=== PATIENT | female | born 1955 | race African-American/Black ===

== ENCOUNTER 2019-07-05 10:15 | Inpatient (IN) | payer BC, SELFPAY ==
[2019-07-05] VITALS (14 sets, daily range): BP systolic 117–159; BP diastolic 77–106; PULSE 48–139; RESP 12–24; TEMP 36.2–37; O2SAT 91–100; BMI 23.1
--- NOTE | ~2019-07-05 | XR_ITS ---
EXAMINATION: XR chest 2V DATE: 07/05/2019 10:52 INDICATION: Chest pain and nausea TECHNIQUE: AP and lateral views of the chest are obtained. COMPARISON: 08/11/2017 FINDINGS: The lungs are free of acute opacities. There is no pleural effusion or pneumothorax. The ca rdiomediastinal silhouette is normal. The visualized bones and soft tissues are unremarkable. IMPRESSION: 1. No acute cardiopulmonary abnormality. Reviewed, dictated and finalized at location A. INSPECTION AND REPAIR MANAGER
--- NOTE | ~2019-07-05 | NM_ITS ---
EXAMINATION: NM lucy stress w perfusion DATE: 07/08/2019 11:30 INDICATION: Atrial fibrillation. Syncope. TECHNIQUE: Rest images were obtained following intravenous administration of 10.8 mCi Tc99m tetrofosm in (Myoview). The patient was infused intravenously with Lexiscan (regadenoson). Then, 31.77 mCi Tc99 m tetrofosmin (Myoview) was administered intravenously, and stress images were obtained. Data was rec onstructed into short axis and horizontal and vertical long axis SPECT images. Gated SPECT images wer e also obtained. COMPARISON: None. FINDINGS: There is no definite reversible or fixed perfusion abnormality to suggest ischemia or infar ction. There is no segmental wall motion abnormality. Left ventricular ejection fraction measures 6 9%. IMPRESSION: 1. No definite ischemia or infarct. 2. Normal left ventricular ejection fraction measuring 69%. Reviewed, dictated and finalized at location A. AL CONTROL OFFICER
--- NOTE | ~2019-07-05 | CT_ITS ---
EXAMINATION: CTA brain carotid EXAM DATE: 07/05/2019 21:39 INDICATION: Atrial fibrillation. Pulsatile tinnitus. Syncope. TECHNIQUE: Noncontrast head CT. Spiral CTA of the carotid arteries was performed with intravenous i njection 100 cc of Omnipaque 350. Axial, coronal, sagittal reformatted images reviewed. Additional r eformatted images created on dedicated 3-D workstation. NASCET comparable standard used to assess th e degree of arterial stenosis. Spiral CT angiogram cerebral arteries performed with the same intrave nous injection of contrast. Source images of the brain CTA transferred to dedicated workstation for 3 -D rotational image creation. Coronal, sagittal maximum intensity pixel images also reviewed. The d ose-length product (DLP) for this examination was 1578.31 mGy-cm. The exposure was tailored accordi ng to patient size, and iterative reconstruction (ASIR) was used as additional dose reduction techniq ue. There is no prior study for comparison. FINDINGS: Punctate right carotid bulb calcification and left carotid siphon calcification with 0% xander nosis bilaterally. The vertebral arteries are codominant. There is no carotid or vertebral basilar a rterial dissection or fibromuscular dysplasia. There are no cerebral artery aneurysms. There is symme tric cerebral artery arborization. The sagittal, transverse and sigmoid sinuses enhance normally, no venous sinus thrombosis. Internal cerebral veins also enhance normally. There is no acute intraparenchymal hemorrhage. No evidence of intraparenchymal brain mass lesion. N o evidence of acute infarction. There is mild periventricular and subcortical hypodensity, nonspecifi c but probably related to small vessel ischemic disease. There is mild prominence of the sulci and ventricles related to cerebral atrophy. There is intracranial carotid arteriosclerosis. There is no mass effect or midline shift. There is no obstructive hydrocephalus suspected. There are no extra -axial collections. There are no calvarial acute fractures. Moderate apical emphysema. Mild cervical spondylosis. IMPRESSION: 1. No cervical arterial dissection or cerebral artery aneurysm. 2. 0% carotid stenosis bilaterally. 3. Mild age-related intracranial findings. Reviewed, dictated and finalized at location A. ILL SUPERVISOR
--- NOTE | 2019-07-05 10:48 | ECG_ITS ---
Measurements Intervals [place] Rate: 135 P: [place]: 0 QRS: 62 QRSD: 89 T: 29 QT: 286 QTc: 430 Interpretive Statements ATRIAL FIBRILLATION WITH RAPID VENTRICULAR RESPONSE ST-T WAVE ABNORMALITY IN ANTEROLATERAL LEADS- CONSIDER ISCHEMIA ABNORMAL ECG Electronically Signed On 07-05-2019 11:08:42 BOILER CONTROL ROOM OPERATOR by Livan Jennings D.O.
[2019-07-05 10:51] LABS: Basophils Absolute Auto 0.1 K/mm3 (0.0-0.1); Basophils Percent Auto 0.6 % (0.2-1.2); Eosinophils Absolute Auto 0.2 K/mm3 (0-0.3); Eosinophils Percent Auto 2.5 % (0-4.4); Hematocrit 42.7 % (37.0-47.0); Hemoglobin 13.2 g/dL (12.0-15.0); Immature Granulocyte Absolute 0.05 K/mm3 (0.00-0.031); Immature Granulocyte Percent A 0.5 % (0-0.5); Lymphocytes Absolute Auto 2.95 K/mm3 (0.9-3.2); Lymphocytes Percent Auto 30.8 % (18.3-44.2); Mean Corpuscular HGB Conc 30.9 g/dl (32-36); Mean Corpuscular Hemoglobin 28.1 pg (26-34); Mean Corpuscular Volume 90.9 fl (80-100); Mean Platelet Volume 10.9 fl (7.4-10.4); Monocytes Absolute Auto 0.5 K/mm3 (0.1-0.6); Monocytes Percent Auto 5.4 % (2.6-8.5); Neutrophils Absolute Auto 5.8 K/mm3 (1.3-6.7); Neutrophils Percent Auto 60.2 % (45.5-73.1); Platelet Count Result 281 k/mm3 (150-375); Red Cell Distribution Width 13.6 % (11.5-14.5); White Blood Count 9.6 K/mm3 (4.5-10.0)
[2019-07-05 11:03] LABS: Alanine Aminotransferase 18 U/L (4-35); Albumin Level 4.6 g/dL (3.5-5.1); Alkaline Phosphatase 129 U/L (38-126); Aspartate Amino Transferase 25 U/L (14-36); Bilirubin,Total 0.3 mg/dL (0.2-1.3); Blood Urea Nitrogen 9 mg/dL (7-17); Calcium 9.4 mg/dL (8.4-10.2); Carbon Dioxide 23 mmol/L (22-30); Chloride 105 mmol/L (98-107); Estimated CRCL calculation 81 ml/min; Estimated Glomerular Filt Rate > 60; Glucose 144 mg/dL (65-105); Potassium 3.4 mmol/L (3.4-5.0); Prothrombin Time 12.6 Seconds (11.1-14.7); Sodium 139 mmol/L (137-145)
[2019-07-05 11:04] LABS: Partial Thromboplastin Time 28.8 SECONDS (22.3-36.8)
[2019-07-05 11:16] LABS: NT Pro B Type Natriuretic Pept 91 PG/ML (5-100); Troponin I < 0.012 ng/mL (0.000-0.034)
[2019-07-05 11:25] LABS: Lactic Acid Reflex 2.7 mmol/L (0.7-2.1)
--- NOTE | 2019-07-05 11:30 | ECG_ITS ---
Measurements Intervals [place] Rate: 137 P: [place]: 0 QRS: 1 QRSD: 97 T: 72 QT: 325 QTc: 492 Interpretive Statements ATRIAL FIBRILLATION WITH RAPID VENTRICULAR RESPONSE ST-T WAVE ABNORMALITY IN LATERAL LEADS- CONSIDER ISCHEMIA ABNORMAL ECG Electronically Signed On 07-05-2019 13:58:44 STOCK COUNTER by Livan Jennings D.O.
[2019-07-05] MEDS: FAMOTIDINE 20 MG/2 ML VIAL IV PUSH ×2 (11:43→21:06)
[2019-07-05] MEDS: LACTATED RINGERS 1,000 ML 999 ML IV CONT ×2 (11:43)
--- NOTE | 2019-07-05 12:43 | PC.NURSE ---
pt converted to nsr
--- NOTE | 2019-07-05 12:48 | ED.GENADULT ---
HPI - General Adult General Chief complaint: Dizziness Stated complaint: vomiting, diarrhea Time Seen by Provider: 07/05/19 10:50 Source: patient Mode of arrival: ambulatory Limitations: no limitations History of Present Illness HPI narrative: Patient is a 64-year-old female who presents to emergency department for evaluation of vomiting that occurred twice today also coupled with 2 loose stools noting to episodes of emesis after eating breakfast this morning had felt fine yesterday and this morning upon waking patient on arrival to emergency department is tachycardic but denying any pain does note some dizziness and nausea. Patient denies rectal bleeding or hematemesis. Patient denies sick contacts or similar occurrence. Patient notes she did vomit her medications up this morning Related Data Home Medications Medication Instructions Recorded Confirmed adalimumab 40 mg/0.8 mL 40 mg SUB-Q .every 2 weeks each 04/20/19 subcutaneous syringe kit amlodipine 10 mg tablet 10 mg PO DAILY 04/20/19 atenolol 25 mg tablet 25 mg PO DAILY 04/20/19 cholecalciferol (vitamin D3) 2,000 2,000 unit PO DAILY 04/20/19 unit tablet hydrochlorothiazide 12.5 mg capsule 12.5 mg PO DAILY 04/20/19 leflunomide 20 mg tablet 20 mg PO DAILY 04/20/19 vitamin B12 500 mcg-folic acid 400 1 tablet PO DAILY 04/20/19 mcg tablet Allergies Allergy/AdvReac Type Severity Reaction Status Date / Time No Known Allergies Allergy Unverified 09/21/15 08:15 Review of Systems Review of Systems: Narrative: CONSTITUTIONAL: Denies fever, chills, or sweats. Positive for for fatigue EYES: Denies redness, or discharge. ENT: Denies rhinorrhea, congestion, sore throat, or otalgia. CARDIOVASCULAR: Denies chest pain, palpitations, or edema. RESPIRATORY: Denies cough or dyspnea. GASTROINTESTINAL: Denies abdominal pain GENITOURINARY: Denies dysuria or hematuria. SKIN: Denies rash or itching. MUSCULOSKELETAL: Denies back pain, joint pain, or myalgia. NEUROLOGIC: Denies headache, numbness, or weakness. [facility] Past Medical History Medical History Hypertension Rheumatoid arthritis Family History Family History (Updated 03/30/16 @ 13:32 by DOCTOR UNKNOWN) Sibling Hypertension Patient's sister is in good health Patient's brother is in good health, Onset Age: 50 Father Family history of malignant neoplasm Patient's father is Social History Social History Smoking status: Former smoker Second hand tobacco smoke exposure: No Smoking end date: 06/12/16 Alcohol intake: never Gender identity (if verbalized by the patient): Female Exam Narrative: Exam Narrative: GENERAL: ill-appearing, well-nourished, and in no acute distress. HEAD: Normocephalic, atraumatic. EYES: PERRLA and EOMI. ENT: Nares clear, no rhinorrhea or epistaxis. Mucous membranes moist. Oropharynx without tonsillar hypertrophy exudate or other lesions. Bilateral TMs pearly perez nonbulging NECK: Supple. No adenopathy or masses. CHEST: Clear to auscultation. No respiratory distress. No wheezes rales or rhonchi HEART: Irregularly irregular rate and rhythm. No murmur heard. Normal peripheral pulses. ABDOMEN: Soft, nontender, nondistended EXTREMITIES: Normal range of motion. No edema. SKIN: Warm, dry, no rash. NEURO: No focal deficits. Alert and oriented x3. Cranial nerves II through XII grossly intact PSYCH: Normal mood and affect. Course Course Emergency Course: Patient in the room at this time in no distress feeling better with interventions afebrile nontoxic-appearing Consultations Consultation #1: Spoke with hospitalist who is agreed to accept the patient physician therapeutic assistant Nedra Spoke with cardiology who is agreed to consult on the patient nurse practitioner Janet Arnold Vital Signs Vital signs: Vital Signs Temperature 98.
--- NOTE | 2019-07-05 12:56 | ECG_ITS ---
Measurements Intervals [place] Rate: 67 P: 70 [place]: 143 QRS: 60 QRSD: 97 T: 84 QT: 433 QTc: 457 Interpretive Statements SINUS RHYTHM BORDERLINE ST-T WAVE ABNORMALITY- ANTEROLAT/LAT LEADS BASELINE ARTIFACT- I, III, AVL BORDERLINE ECG Electronically Signed On 07-05-2019 13:59:08 RN CLINICAL RESEARCH by Livan Jennings D.O.
--- NOTE | 2019-07-05 13:30 | PC.NURSE ---
pt refused influenza swab
[2019-07-05 13:33] LABS: Add Urine Microscopic? YES; Appearance Urine Clear (Clear); Bilirubin Urine Negative (Negative); Blood Urine 1+ (Negative); Color Urine Colorless (Yellow); Glucose Urine UA Negative (Negative); Ketones Urine Negative (Negative); Leukocyte Esterase Ur 2+ LEU/UL (Negative); Nitrate Urine Negative (Negative); Protein Urine Negative (Negative); RBC Urine 0-2 /hpf (0-2); Squamous Epithelial Cell Urine Occasional /hpf (Few); Urobilinogen Urine Negative mg/dL (<2.0)
[2019-07-05 13:35] LABS: Specific Grav Ur 1.003 (1.001-1.035)
[2019-07-05 14:12] LABS: Reflex Lactic Acid Yes or No Add Lactic
[2019-07-05 14:23] LABS: Troponin I < 0.012 ng/mL (0.000-0.034)
--- NOTE | 2019-07-05 15:33 | ADMGEN ---
This patient, Barbara Pagan, was admitted to IMU Room 213-01. Patient/family oriented to hospital policies and general routines including ID bracelet, bed and alarms, visiting hours, pain management, procedures, bathroom and other care routines, personal items, smoking policy, room service/diet, and visiting hours. Valuables list has been completed. Information on how to activate the Rapid Response Team has been discussed. Patient/Family are encouraged to report perceived risks to care and to ask questions if they do not understand what they are told or what they should do.
--- NOTE | 2019-07-05 16:25 | PM.CNCAR ---
Assessment and Plan Additional Plan Paroxysmal atrial fibrillation occurring in this 64-year-old lady with background of hypertension and suspected background of some COPD with 40 previous years of cigarette smoking Symptoms on presentation which were pretty classic for benign positional vertigo I would recommend Sotalol at low dose to attempt to maintain NSR Systemic anticoagulation is indicated I will prescribe Xarelto. Echocardiogram will be ordered if the study is negative for structural problem anticoagulation may not be mandatory Will follow-up tomorrow and assess response to treatment and review echocardiographic findings History of Present Illness History of Present Illness Consult date/time: Date of service: 07/05/19 16:25 Reason For Visit: Atrial fibrilation Narrative: This is a 64-year-old black female and I am seeing at the request of the hospitalist for assistance with evaluation and management of atrial fibrillation. The patient is unknown to me prior to this visit and does not really have any recollection of having any cardiac problems in the past. She actually came to the hospital emergency room earlier today with what sound like symptoms of significant positional vertigo. She states she was feeling unwell today with a sense of the room spinning around and aggravated by any time she changed the position of her head. She became nauseated while this was happening and came to the emergency room and she was found to be tachycardic. Her electrocardiogram demonstrated AFib with rapid ventricular response and she did not appear to be at all hemodynamically unstable. Of course she was treated with intravenous diltiazem for heart rate control and while she was still in the emergency room she converted back to sinus rhythm/sinus bradycardia. While after that she was admitted to the IMU for further evaluation and management. She states she is now comfortable and does not have any significant complaints the vertigo seems to have subsided at this time. She does have a history of hypertension and was told by her physician that she probably has some chronic lung disease which has been felt to be mild because of a previous history of cigarette smoking. Review of Systems Constitutional: Constitutional: Reports no additional constitutional complaints Eyes: Eyes: Reports no additional eye complaints ENT: Reports system reviewed and no additional complaints, except as documented Cardiovascular: Cardiovascular: Reports palpitations Respiratory: Respiratory: Reports no additional respiratory complaints Gastrointestinal: Gastrointestinal: Reports as per HPI and Reports nausea Genitourinary: Genitourinary: Reports no additional female genitourinary complaints Musculoskeletal: Musculoskeletal: Reports no additional musculoskeletal complaints Integumentary/Breasts: Skin/Breast: Reports system reviewed and no additional complaints, except as docu Neurologic: Reports vertigo Hematologic/Lymphatic: Hematologic/Lymphatic: Reports no additional hematologic/lymphatic complaints Allergic/Immunologic: Allergic/Immunologic: Reports no additional allergic/immunologic complaints [facility] Past Medical History Medical History Hypertension Rheumatoid arthritis Family History Family History (Updated 03/30/16 @ 13:32 by DOCTOR UNKNOWN) Sibling Hypertension Patient's sister is in good health Patient's brother is in good health, Onset Age: 50 Father Family history of malignant neoplasm Patient's father is Social History Social History Smoking packs per day: 1 Smoking cigarettes per day: 20.0 Years smoked: 40 Smoking pack-years: 40.00 Smoking status: Former smoker Second hand tobacco smoke exposure: Yes Smoking end date: 08/10/17 Alcohol intake: never Substance use: former
[2019-07-05 17:04] LABS: Lactic Acid Reflex 1.7 mmol/L (0.7-2.1)
[2019-07-05 17:17] LABS: Troponin I < 0.012 ng/mL (0.000-0.034)
[2019-07-05] MEDS: RIVAROXABAN 20 MG TABLET PO (18:35)
[2019-07-05 19:44] LABS: Troponin I < 0.012 ng/mL (0.000-0.034)
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
[2019-07-05] MEDS: SOTALOL HCL 40 MG TABLET PO (21:07)
[2019-07-06] VITALS (14 sets, daily range): BP systolic 126–154; BP diastolic 82–93; PULSE 55–88; RESP 12–16; TEMP 36.1–36.8; O2SAT 95–100
--- NOTE | 2019-07-06 | ECHO_ITS ---
Patient Info Name: Barbara Pagan Age: 64 years : 1955 Gender: Female Ht: 68 in Wt: 150 lbs BSA: 1.81 m2 HR: 72 bpm BP: 153 / 93 mmHg Heart Rhythm: Sinus Rhythm Technical Quality: Good Exam Date: 07/06/2019 7:12 AM Exam Location: [facility] Card Pulmonary Patient Status: Inpatient Admit Date: 07/06/2019 Staff Ordering Physician: Anshu Rogers MD Director Of Software Development: Seble Reyes RDCS Attending Provider: Jose Luis Gagnon MD Referring Physician: Ken BURNS; Exam Type: CA echo doppler color flow Study Info Complete two-dimensional, color flow and Doppler transthoracic echocardiogram is performed. Summary 1. Left ventricular chamber dimension is normal. 2. Left ventricular systolic function is normal, estimated at 65-70%. 3. There is mildly increased left ventricular wall thickness. 4. Left ventricular septal wall motion is normal. 5. The left ventricular diastolic function is grade I diastolic dysfunction. 6. Left atrial chamber dimension is mildly enlarged. 7. There is mild mitral valve regurgitation. 8. There is mild pulmonic regurgitation. Left Ventricle Left ventricular chamber dimension is normal. Left ventricular systolic function is normal, estimated at 65-70%. There is mildly increased left ventricular wall thickness. Left ventricular septal wall motion is normal. The left ventricular diastolic function is grade I diastolic dysfunction. Right Ventricle Right ventricular chamber dimension is normal. Right ventricular systolic function is normal. Left Atria Left atrial chamber dimension is mildly enlarged. Right Atria Right atrial chamber dimension is normal. Atrial Septum Intact interatrial septum visualized by color flow imaging. Aortic Valve The aortic valve is trileaflet. There is mild aortic valve sclerosis. There is no aortic valve stenosis. There is trace aortic valve regurgitation. Pulmonic Valve The pulmonic valve is normal. There is no pulmonic valve stenosis. There is mild pulmonic regurgitation. Mitral Valve The mitral valve has calcified annulus. There is no mitral valve stenosis. There is mild mitral valve regurgitation. Tricuspid Valve The tricuspid valve leaflets are normal. There is no significant tricuspid valve stenosis. There is trace tricuspid valve regurgitation. No pulmonary hypertension, estimated pulmonary arterial systolic pressure is 20 mmHg. Pericardium/Pleural The pericardium appears normal. There is no pericardial effusion. Aorta The aortic root size at the sinus of Valsalva is normal. Left Ventricular Outflow Tract Name Value Normal LVOT Doppler LVOT Peak Velocity 86 cm/s LVOT Peak Gradient 3 mmHg LVOT Mean Gradient 1 mmHg LVOT VTI 10 cm Pulmonic Valve Name Value Normal PV Doppler PV Peak Velocity 80 cm/s PV Peak Gradient
[2019-07-06 06:36] LABS: Basophils Absolute Auto 0.1 K/mm3 (0.0-0.1); Basophils Percent Auto 0.6 % (0.2-1.2); Eosinophils Absolute Auto 0.3 K/mm3 (0-0.3); Eosinophils Percent Auto 2.6 % (0-4.4); Hematocrit 36.9 % (37.0-47.0); Hemoglobin 11.7 g/dL (12.0-15.0); Immature Granulocyte Absolute 0.02 K/mm3 (0.00-0.031); Immature Granulocyte Percent A 0.2 % (0-0.5); Lymphocytes Absolute Auto 5.04 K/mm3 (0.9-3.2); Lymphocytes Percent Auto 52.6 % (18.3-44.2); Mean Corpuscular HGB Conc 31.7 g/dl (32-36); Mean Corpuscular Hemoglobin 28.7 pg (26-34); Mean Corpuscular Volume 90.4 fl (80-100); Mean Platelet Volume 10.8 fl (7.4-10.4); Monocytes Absolute Auto 0.6 K/mm3 (0.1-0.6); Monocytes Percent Auto 6.7 % (2.6-8.5); Neutrophils Absolute Auto 3.6 K/mm3 (1.3-6.7); Neutrophils Percent Auto 37.3 % (45.5-73.1); Platelet Count Result 283 k/mm3 (150-375); Red Blood Count 4.08 M/mm3 (4.2-5.4); Red Cell Distribution Width 13.7 % (11.5-14.5); White Blood Count 9.6 K/mm3 (4.5-10.0)
[2019-07-06 08:47] LABS: Alanine Aminotransferase 17 U/L (4-35); Albumin Level 4.4 g/dL (3.5-5.1); Alkaline Phosphatase 110 U/L (38-126); Aspartate Amino Transferase 23 U/L (14-36); Bilirubin,Total 0.7 mg/dL (0.2-1.3); Blood Urea Nitrogen 7 mg/dL (7-17); Calcium 9.6 mg/dL (8.4-10.2); Carbon Dioxide 29 mmol/L (22-30); Chloride 99 mmol/L (98-107); Estimated CRCL calculation 71 ml/min; Estimated Glomerular Filt Rate > 60; Glucose 114 mg/dL (65-105); Potassium 3.5 mmol/L (3.4-5.0); Sodium 138 mmol/L (137-145)
[2019-07-06] MEDS: SOTALOL HCL 40 MG TABLET PO ×2 (09:04→21:25)
[2019-07-06] MEDS: CHOLECALCIFEROL 1,000 UNIT TABLET 2000 UNITS PO (09:06)
[2019-07-06] MEDS: AMLODIPINE BESYLATE 5 MG TABLET 10 MG PO (09:06)
[2019-07-06] MEDS: CYANOCOBALAMIN 500 MCG TABLET PO (09:07)
[2019-07-06] MEDS: FOLIC ACID 0.4 MG TABLET PO (09:08)
[2019-07-06] MEDS: FAMOTIDINE 20 MG/2 ML VIAL IV PUSH ×2 (09:08→21:24)
[2019-07-06] MEDS: LEFLUNOMIDE 20 MG TABLET PO (09:09)
--- NOTE | 2019-07-06 11:36 | ECG_ITS ---
Measurements Intervals [place] Rate: 57 P: 67 [place]: 148 QRS: 61 QRSD: 89 T: 99 QT: 429 QTc: 421 Interpretive Statements SINUS BRADYCARDIA DELAYED PRECORDIAL R/S TRANSITION BORDERLINE ST-T WAVE ABNORMALITY- ANTEROLAT/LAT LEADS BORDERLINE ECG Electronically Signed On 07-06-2019 17:41:11 NURSERYPERSON by Livan Jennings D.O.
--- NOTE | 2019-07-06 12:33 | PM.PNCARD ---
Progress Note: A&P Assessment and Plan (1) Atrial fibrillation: Code(s): I48.91 - Unspecified atrial fibrillation Status: Acute Assessment and Plan: Still in sinus rhythm. Sotalol loading continues. Will check an EKG today. Outpatient stress test recommended (2) Hypertension: Code(s): I10 - Essential (primary) hypertension Status: Acute Assessment and Plan: Discontinue atenolol for now. Will likely need to add another agent (3) Syncope: Code(s): R55 - Syncope and collapse Status: Acute Assessment and Plan: Echo pending. Continue potline monitor and will need outpatient stress testing Subjective Date/time seen: 07/06/19 12:33 Interval history: Chief complaint: Atrial fibrillation, syncope Date of service 07/06/2019 She is feeling well and denies any chest pain, shortness of breath. Review of Systems Constitutional: Constitutional: Reports no additional constitutional complaints Eyes: Eyes: Reports no additional eye complaints ENT: Reports system reviewed and no additional complaints, except as documented and Reports vertigo Cardiovascular: Cardiovascular: Reports palpitations Respiratory: Respiratory: Reports no additional respiratory complaints Gastrointestinal: Gastrointestinal: Reports as per HPI and Reports nausea Genitourinary: Genitourinary: Reports no additional female genitourinary complaints Musculoskeletal: Musculoskeletal: Reports no additional musculoskeletal complaints Integumentary/Breasts: Skin/Breast: Reports system reviewed and no additional complaints, except as docu Neurologic: Reports vertigo Psychiatric: Psychiatric: Denies anxiety Endocrine: Endocrine: Reports palpitations Hematologic/Lymphatic: Hematologic/Lymphatic: Reports no additional hematologic/lymphatic complaints Allergic/Immunologic: Allergic/Immunologic: Reports no additional allergic/immunologic complaints Exam Const: General: comfortable and no acute distress HENMT: Mouth: Yes moist mucous membranes Eyes: Sclera: sclerae normal Pupils: Equal, round and reactive pupils present EOM: EOMs intact bilaterally Neck: Neck: supple and no JVD Thyroid: thyroid normal Carotids: bruit Resp: Effort & Inspection: normal respiratory effort Auscultation: clear to auscultation bilaterally Cardio: Rate: regular rate Rhythm: regular rhythm Other: No murmur no gallop GI: Auscultation: normal bowel sounds Skin: General skin exam: normal color Neuro: Cranial nerves: Yes Equal, round and reactive pupils present Extrem: General: normal to inspection Psych: Affect: normal affect Objective Data Vital Signs Vital Signs: Vital Signs - 24 hr 07/05/19 13:00 07/05/19 15:10 07/05/19 15:15 Temperature Pulse Rate 61 71 48 L Respiratory Rate 16 16 Blood Pressure 137/86 122/77 Pulse Oximetry 97 97 07/05/19 15:43 07/05/19 18:00 07/05/19 19:02 Temperature 36.2 C L 37.0 C Pulse Rate 52 L 58 L 61 Respiratory Rate 18 16 Blood Pressure 159/77 H 129/83 Pulse Oximetry 98 98 07/05/19 20:00 07/05/19 21:07 07/05/19 22:00 Temperature Pulse Rate 66 65 63 Respiratory Rate Blood Pressure Pulse Oximetry 07/05/19 23:12 07/05/19 23:18 07/06/19 00:00 Temperature 36.3 C L Pulse Rate 76 55 L Respiratory Rate 16 Blood Pressure 132/106 H Pulse Oximetry 98 91 07/06/19 02:00 07/06/19 04:00 07/06/19 06:00 Temperature 36.8 C Pulse Rate 55 L 65 71 Respiratory Rate 16 Blood Pressure 139/82 Pulse Oximetry 98 07/06/19 08:00 07/06/19 09:04 07/06/19 10:00 Temperature 36.4 C L Pulse Rate 68 75 66 Respiratory Rate 12 Blood Pressure 154/93 H Pulse Oximetry 100 07/06/19 12:00 Temperature 36.1 C L Pulse Rate 62 Respiratory Rate 12 Blood Pressure 126/82 Pulse Oximetry 96 Intake/Output Intake/Output: Intake & Output 07/03/19 07/04/19 07/05/19 07/06/19 23:59 23:59 23:59 23:59 Intake Total
--- NOTE | 2019-07-06 15:46 | PM.IMPN ---
Progress Note: A&P Assessment and Plan (1) Syncope: Qualifiers: Syncope type: unspecified Qualified Code(s): R55 - Syncope and collapse Code(s): R55 - Syncope and collapse Status: Acute Assessment and Plan: Likely neurocardiogenic Posterior circulation TIA less likely, CTA head and neck negative 07/05 (2) Vertigo: Code(s): R42 - Dizziness and giddiness Status: Acute Assessment and Plan: Etiology unclear Severe nausea and emesis suggest peripheral etiology, but no prior hx or current sx's. (3) Atrial fibrillation with rapid ventricular response: Code(s): I48.91 - Unspecified atrial fibrillation Status: Acute Assessment and Plan: 07/05 ApneaLink WNL 07/06 in NSR, continue sotalol and rivaroxaban (4) Hypertension: Qualifiers: Hypertension type: essential hypertension Qualified Code(s): I10 - Essential (primary) hypertension Code(s): I10 - Essential (primary) hypertension Status: Acute Assessment and Plan: 07/06 126/82 on hctz, discussed low sodium diet Subjective Date/time seen: 07/06/19 15:46 Interval history: 64 y/o f admitted 07/05 with n/v, vertigo, syncope, afib rvr. Cardioverted on diltiazem drip. 07/06 c/o excessive flatus with sotalol. Denied cp or sob or dizziness or palpitations. No other GI/ changes. No bleeding. Review of Systems Review of Systems: All systems reviewed & are unremarkable except as noted in HPI and below Exam Narrative: Exam Narrative: HEENT: EOMI, PERRL, pharyngeal mucosa pink and intact NECK: No JVD CHEST: Clear to auscultation. Normal effort. HEART: NL S1/S2, regular, no murmur ABDOMEN: BS+, soft, nontender, no mass, no bruits EXTREMITIES: No cyanosis, edema, or clubbing NEUROLOGIC: CN intact and symmetric to inspection. MUSCULOSKELETAL: Tone and strength symmetric. PSYCH: Alert. Oriented to person, place, and time. Objective Data Vital Signs Vital Signs: Vital Signs - 24 hr 07/05/19 18:00 07/05/19 19:02 07/05/19 20:00 Temperature 98.6 F Pulse Rate 58 L 61 66 Respiratory Rate 16 Blood Pressure 129/83 Pulse Oximetry 98 07/05/19 21:07 07/05/19 22:00 07/05/19 23:12 Temperature 97.4 F L Pulse Rate 65 63 76 Respiratory Rate 16 Blood Pressure 132/106 H Pulse Oximetry 98 07/05/19 23:18 07/06/19 00:00 07/06/19 02:00 Temperature Pulse Rate 55 L 55 L Respiratory Rate Blood Pressure Pulse Oximetry 91 07/06/19 04:00 07/06/19 06:00 07/06/19 08:00 Temperature 98.2 F 97.5 F L Pulse Rate 65 71 68 Respiratory Rate 16 12 Blood Pressure 139/82 154/93 H Pulse Oximetry 98 100 07/06/19 09:04 07/06/19 10:00 07/06/19 12:00 Temperature 97.0 F L Pulse Rate 75 66 62 Respiratory Rate 12 Blood Pressure 126/82 Pulse Oximetry 96 Intake/Output Intake/Output: Intake & Output 07/03/19 07/04/19 07/05/19 07/06/19 23:59 23:59 23:59 23:59 Intake Total 707 320 Output Total 800 800 Balance -93 -480 Meds/Results Medications: Active Medications Generic Name Dose Route Start Last Admin Trade Name Freq PRN Reason Stop Dose Admin Amlodipine Besylate 10 mg 07/06/19 09:00 07/06/19 09:06 Norvasc PO 10 mg DAILY SCAR Administration Cyanocobalamin 500 mcg 07/06/19 09:00 07/06/19 09:07 Vitamin B-12 Tab PO 08/05/19 09:01 500 mcg DAILY SCAR Administration Famotidine 20 mg 07/05/19 21:00 07/06/19 09:08 Pepcid Iv IV PUSH 20 mg Q12HR SCAR Administration Folic Acid 0.4 mg 07/06/19 09:00 07/06/19 09:08 Folic Acid PO 08/05/19 09:01 0.4 mg DAILY SCAR Administration Hydrochlorothiazide 12.5 mg 07/06/19 09:00 Hydrochlorothiazide PO DAILY SCAR Leflunomide 20 mg 07/06/19 09:00 07/06/19 09:09 Leflunomide PO 20 mg DAILY SCAR Administration Ondansetron HCl 4 mg 07/05/19 13:32 Zofran Inj IV PUSH Q4H PRN Nausea Rivaroxaban 20 mg 01/24/20 17:00
[2019-07-06] MEDS: RIVAROXABAN 20 MG TABLET PO (16:50)
[2019-07-06] MEDS: hydroCHLOROthiazide 12.5 MG CAPSULE PO (16:50)
[2019-07-07] VITALS (14 sets, daily range): BP systolic 128–153; BP diastolic 77–99; PULSE 58–85; RESP 16–18; TEMP 35.7–36.5; O2SAT 96–100
--- NOTE | 2019-07-07 08:21 | ECG_ITS ---
Measurements Intervals [place] Rate: 65 P: 70 NH: 147 QRS: 74 QRSD: 90 T: 94 QT: 399 QTc: 417 Interpretive Statements SINUS RHYTHM WITH SINUS ARRHYTHMIA DELAYED PRECORDIAL R/S TRANSITION BORDERLINE ST-T WAVE ABNORMALITY- ANTEROLAT/LAT LEADS BASELINE ARTIFACT- V5 BORDERLINE ECG Electronically Signed On 07-07-2019 13:29:51 [employer] by Livan Jennings D.O.
[2019-07-07] MEDS: NITROFURANTOIN MONOHYD MACROCR 100 MG CAP PO ×2 (09:03→21:33)
[2019-07-07] MEDS: CHOLECALCIFEROL 1,000 UNIT TABLET 2000 UNITS PO (09:03)
[2019-07-07] MEDS: AMLODIPINE BESYLATE 5 MG TABLET 10 MG PO (09:04)
[2019-07-07] MEDS: FOLIC ACID 0.4 MG TABLET PO (09:04)
[2019-07-07] MEDS: CYANOCOBALAMIN 500 MCG TABLET PO (09:04)
[2019-07-07] MEDS: SOTALOL HCL 40 MG TABLET PO ×2 (09:05→21:33)
[2019-07-07] MEDS: FAMOTIDINE 20 MG/2 ML VIAL IV PUSH (09:05)
[2019-07-07] MEDS: LEFLUNOMIDE 20 MG TABLET PO (09:05)
[2019-07-07] MEDS: hydroCHLOROthiazide 12.5 MG CAPSULE PO (09:05)
--- NOTE | 2019-07-07 09:42 | PM.IMPN ---
Progress Note: A&P Assessment and Plan (1) Syncope: Qualifiers: Syncope type: unspecified Qualified Code(s): R55 - Syncope and collapse Code(s): R55 - Syncope and collapse Status: Acute Assessment and Plan: Likely neurocardiogenic Posterior circulation TIA less likely, CTA head and neck negative 07/05 07/07 no recurrent sx's (2) Vertigo: Code(s): R42 - Dizziness and giddiness Status: Acute Assessment and Plan: Etiology unclear Severe nausea and emesis suggest peripheral etiology, but no prior hx or current sx's. (3) Atrial fibrillation with rapid ventricular response: Code(s): I48.91 - Unspecified atrial fibrillation Status: Acute Assessment and Plan: 07/05 ApneaLink WNL 07/06 in NSR, continue sotalol and rivaroxaban 07/07 in NSR Lexiscan stress planned for 07/08 (4) Hypertension: Qualifiers: Hypertension type: essential hypertension Qualified Code(s): I10 - Essential (primary) hypertension Code(s): I10 - Essential (primary) hypertension Status: Acute Assessment and Plan: 07/06 126/82 on hctz, discussed low sodium diet 07/07 140/92, monitor (5) UTI (urinary tract infection) due to Enterococcus: Code(s): N39.0 - Urinary tract infection, site not specified; B95.2 - Enterococcus as the cause of diseases classified elsewhere Status: Acute Assessment and Plan: 07/07 empiric nitrofurantoin pending sensitivities change in solid since Subjective Date/time seen: 07/07/19 09:42 Interval history: 64 y/o f admitted 07/05 with n/v, vertigo, syncope, afib rvr. Cardioverted on diltiazem drip. 07/06 c/o excessive flatus with sotalol. Denied cp or sob or dizziness or palpitations. No other GI/ changes. No bleeding. 07/07 Poor appetite. Bloating. But stools normal. No cp or palpitations. No edema. No bleeding. No dysuria or frequency. Review of Systems Review of Systems: All systems reviewed & are unremarkable except as noted in HPI and below Exam Narrative: Exam Narrative: HEENT: EOMI, PERRL, pharyngeal mucosa pink and intact NECK: No JVD CHEST: Clear to auscultation. Normal effort. HEART: NL S1/S2, regular, no murmur ABDOMEN: BS+, soft, nontender, no mass, no bruits EXTREMITIES: No cyanosis, edema, or clubbing NEUROLOGIC: CN intact and symmetric to inspection. MUSCULOSKELETAL: Tone and strength symmetric. PSYCH: Alert. Oriented to person, place, and time. Objective Data Vital Signs Vital Signs: Vital Signs - 24 hr 07/06/19 10:00 07/06/19 12:00 07/06/19 14:00 Temperature 97.0 F L Pulse Rate 66 59 L 75 Respiratory Rate 12 Blood Pressure 126/82 Pulse Oximetry 96 07/06/19 16:00 07/06/19 18:00 07/06/19 20:00 Temperature 97.5 F L 97.3 F L Pulse Rate 71 74 78 Respiratory Rate 16 16 Blood Pressure 145/91 H 142/87 H Pulse Oximetry 100 95 07/06/19 21:25 07/06/19 22:00 07/07/19 00:00 Temperature 97.7 F Pulse Rate 65 69 60 Respiratory Rate 16 Blood Pressure 138/82 Pulse Oximetry 98 07/07/19 02:00 07/07/19 04:00 07/07/19 05:50 Temperature 97.6 F Pulse Rate 62 72 71 Respiratory Rate 16 Blood Pressure 128/77 Pulse Oximetry 96 07/07/19 08:00 07/07/19 09:05 Temperature 96.3 F L Pulse Rate 85 85 Respiratory Rate 16 Blood Pressure 140/92 H Pulse Oximetry 96 Intake/Output Intake/Output: Intake & Output 07/04/19 07/05/19 07/06/19 07/07/19 23:59 23:59 23:59 23:59 Intake Total 707 560 Output Total 800 800 Balance -93 -240 Meds/Results Medications: Active Medications Generic Name Dose Route Start Last Admin Trade Name Freq PRN Reason Stop Dose Admin Amlodipine Besylate 10 mg 07/06/19 09:00 07/07/19 09:04 Norvasc PO 10 mg DAILY SCAR Administration Cyanocobalamin 500 mcg 07/06/19 09:00 07/07/19 09:04 Vitamin B-12 Tab PO 08/05/19 09:01 500 mcg DAILY SCAR Administration Famotidine 20 mg 07/05/19 21:0
--- NOTE | 2019-07-07 09:55 | PM.PNCARD ---
Progress Note: A&P Assessment and Plan (1) Atrial fibrillation: Code(s): I48.91 - Unspecified atrial fibrillation Status: Acute Assessment and Plan: Still in sinus rhythm. Sotalol loading continues. EKG again today to evaluate QT interval. Since she is going to be here tomorrow morning anyway, she wishes to pursue her stress test as inpatient. Therefore Lexiscan myocardial perfusion study is ordered. (2) Hypertension: Qualifiers: Hypertension type: essential hypertension Qualified Code(s): I10 - Essential (primary) hypertension Code(s): I10 - Essential (primary) hypertension Status: Acute Assessment and Plan: Reasonably controlled. May need another agent as an outpatient (3) Syncope: Qualifiers: Syncope type: unspecified Qualified Code(s): R55 - Syncope and collapse Code(s): R55 - Syncope and collapse Status: Acute Assessment and Plan: Unremarkable echo. continue threat monitoring analyst. Stress test on Subjective Date/time seen: 07/07/19 09:55 Interval history: Chief complaint: Atrial fibrillation, syncope Date of service 07/07/2019 She is feeling well and denies any chest pain, shortness of breath. Does c/o metallic taste in her mouth. Echocardiogram performed yesterday shows normal left ventricular size and function. No significant valvular problems Review of Systems Constitutional: Constitutional: Reports no additional constitutional complaints Eyes: Eyes: Reports no additional eye complaints ENT: Reports system reviewed and no additional complaints, except as documented and Reports vertigo Cardiovascular: Cardiovascular: Reports palpitations Respiratory: Respiratory: Reports no additional respiratory complaints Gastrointestinal: Gastrointestinal: Reports as per HPI and Reports nausea Genitourinary: Genitourinary: Reports no additional female genitourinary complaints Musculoskeletal: Musculoskeletal: Reports no additional musculoskeletal complaints Integumentary/Breasts: Skin/Breast: Reports system reviewed and no additional complaints, except as docu Neurologic: Reports vertigo Psychiatric: Psychiatric: Denies anxiety Endocrine: Endocrine: Reports palpitations Hematologic/Lymphatic: Hematologic/Lymphatic: Reports no additional hematologic/lymphatic complaints Allergic/Immunologic: Allergic/Immunologic: Reports no additional allergic/immunologic complaints Exam Const: General: comfortable and no acute distress HENMT: Mouth: Yes moist mucous membranes Eyes: Sclera: sclerae normal Pupils: Equal, round and reactive pupils present EOM: EOMs intact bilaterally Neck: Neck: supple and no JVD Thyroid: thyroid normal Carotids: bruit Resp: Effort & Inspection: normal respiratory effort Auscultation: clear to auscultation bilaterally Cardio: Rate: regular rate Rhythm: regular rhythm Other: No murmur no gallop GI: Auscultation: normal bowel sounds Skin: General skin exam: normal color Neuro: Cranial nerves: Yes Equal, round and reactive pupils present Extrem: General: normal to inspection Psych: Affect: normal affect Objective Data Vital Signs Vital Signs: Vital Signs - 24 hr 07/06/19 10:00 07/06/19 12:00 07/06/19 14:00 Temperature 36.1 C L Pulse Rate 66 59 L 75 Respiratory Rate 12 Blood Pressure 126/82 Pulse Oximetry 96 07/06/19 16:00 07/06/19 18:00 07/06/19 20:00 Temperature 36.4 C L 36.3 C L Pulse Rate 71 74 78 Respiratory Rate 16 16 Blood Pressure 145/91 H 142/87 H Pulse Oximetry 100 95 07/06/19 21:25 07/06/19 22:00 07/07/19 00:00 Temperature 36.5 C Pulse Rate 65 69 60 Respiratory Rate 16 Blood Pressure 138/82 Pulse Oximetry 98 07/07/19 02:00 07/07/19 04:00 07/07/19 05:50 Temperature 36.4 C Pulse Rate 62 72 71 Respiratory Rate 16 Blood Pressure 128/77 Pulse Oximetry 96 07/07/19 08:00 07/07/19 09:05 Temperature 35.7 C L Pulse R
[2019-07-07] MEDS: RIVAROXABAN 20 MG TABLET PO (17:07)
[2019-07-07] MEDS: FAMOTIDINE 20 MG TABLET PO (21:33)
[2019-07-08] VITALS (9 sets, daily range): BP systolic 130–149; BP diastolic 66–86; PULSE 59–76; RESP 16–18; TEMP 36.1–36.6; O2SAT 97–100
--- NOTE | 2019-07-08 08:00 | EST_ITS ---
Patient Info Name: Barbara Pagan Age: 64 years : 1955 Gender: Female Ht: 68 in Wt: 154 lbs BSA: 1.84 m2 Exam Date: 07/08/2019 9:44 AM Exam Location: [facility] Stress Patient Status: Inpatient Admit Date: 07/06/2019 Staff Ordering Physician: Geovanni Ortega MD Attending Provider: Jose Luis Gagnon MD Exercise Technologist: Betty Escobar RDCS Nurse: Janet Arnold, ANNETTE, ACNP-BC Exam Type: CA stress lucy w NM Study Info Indications R55 - Syncope and collapse I48.1 - Persistent atrial fibrillation A regadenoson stress test was performed. Summary 1. Normal sinus rhythm - normal ECG. 2. No abnormal ST/T wave changes with exercise. 3. None. 4. Myocardial perfusion imaging exam to be dictated by Radiology. Protocol: Lexiscan Stress ECG Details Stage: REST Duration (min): 1 min : 26 sec HR (bpm): 67 SBP (mmHg): 124 DBP (mmHg): 95 Stage: REST Duration (min): 7 min : 14 sec HR (bpm): 74 SBP (mmHg): 124 DBP (mmHg): 95 Stage: STAGE 1 Duration (min): 1 min : 0 sec HR (bpm): 107 SBP (mmHg): 134 DBP (mmHg): 108 Stage: RECOVERY Duration (min): 1 min : 0 sec HR (bpm): 106 SBP (mmHg): 131 DBP (mmHg): 86 Stage: RECOVERY Duration (min): 2 min : 0 sec HR (bpm): 100 SBP (mmHg): 131 DBP (mmHg): 86 Stage: RECOVERY Duration (min): 3 min : 0 sec HR (bpm): 99 SBP (mmHg): 139 DBP (mmHg): 88 Stage: RECOVERY Duration (min): 4 min : 0 sec HR (bpm): 94 SBP (mmHg): 139 DBP (mmHg): 88 Stage: RECOVERY Duration (min): 5 min : 0 sec HR (bpm): 94 SBP (mmHg): 123 DBP (mmHg): 90 Stage: RECOVERY Duration (min): 6 min : 0 sec HR (bpm): 82 SBP (mmHg): 123 DBP (mmHg): 90 Stage: RECOVERY Duration (min): 7 min : 0 sec HR (bpm): 80 SBP (mmHg): 137 DBP (mmHg): 92 Stage: RECOVERY Duration (min): 8 min : 0 sec HR (bpm): 79 SBP (mmHg): 137 DBP (mmHg): 92 Stage: RECOVERY Duration (min): 9 min : 0 sec HR (bpm): 83 SBP (mmHg): 129 DBP (mmHg): 93 Stage: RECOVERY Duration (min): 9 min : 4 sec HR (bpm): 79 SBP (mmHg): 129 DBP (mmHg): 93 Rest HR: 74 bpm Peak HR: 111 bpm Rest Sys BP: 124 mmHg Peak Sys BP: 139 mmHg Max Pred HR: 156 bpm % Max Pred HR: 71 % Target HR: 133 bpm Max RPP: 15,429 bpm*mmHg BP Response: Normal blood pressure response Termination Reason: Completed protocol Cardiac Symptoms: None Total Time: 1 min : 0 sec Rest Franks BP: 95 mmHg Peak Franks BP: 88 mmHg Total Dose: 0.4 mg Aminophylline Dose: 50 mg Resting ECG Normal sinus rhythm - normal ECG. Stress ECG No abnormal ST/T wave changes with exercise. Arrhythmias None. Report Signatures
--- NOTE | 2019-07-08 08:47 | ECG_ITS ---
Measurements Intervals [place] Rate: 70 P: 70 MA: 145 QRS: 61 QRSD: 86 T: 82 QT: 397 QTc: 429 Interpretive Statements SINUS RHYTHM DELAYED PRECORDIAL R/S TRANSITION BORDERLINE ST-T WAVE ABNORMALITY- ANTEROLAT/LAT LEADS BASELINE WANDER- II, III, AVF, V6 BORDERLINE ECG Electronically Signed On 07-08-2019 10:56:46 [employer] by Livan Jennings D.O.
--- NOTE | 2019-07-08 09:05 | PM.DS ---
DS: Diagnosis Admitting Diagnosis Admitting Diagnosis: Unspecified atrial fibrillation Discharge Diagnosis (1) Syncope: Qualifiers: Syncope type: unspecified Qualified Code(s): R55 - Syncope and collapse Code(s): R55 - Syncope and collapse Status: Acute Assessment and Plan: Likely neurocardiogenic Posterior circulation TIA less likely, CTA head and neck negative 07/05 07/08 no recurrent sx's (2) Vertigo: Code(s): R42 - Dizziness and giddiness Status: Acute Assessment and Plan: Etiology unclear Severe nausea and emesis suggest peripheral etiology, but no prior hx or current sx's. (3) Atrial fibrillation with rapid ventricular response: Code(s): I48.91 - Unspecified atrial fibrillation Status: Acute Assessment and Plan: 07/05 ApneaLink WNL 07/06 in NSR, continue sotalol and rivaroxaban 07/07 in NSR 07/08 NSR Lexiscan stress 07/08 negative (4) Hypertension: Qualifiers: Hypertension type: essential hypertension Qualified Code(s): I10 - Essential (primary) hypertension Code(s): I10 - Essential (primary) hypertension Status: Acute Assessment and Plan: 07/06 126/82 on hctz, discussed low sodium diet 07/07 140/92, monitor 07/08 136/66 (5) UTI (urinary tract infection) due to Enterococcus: Code(s): N39.0 - Urinary tract infection, site not specified; B95.2 - Enterococcus as the cause of diseases classified elsewhere Status: Acute Assessment and Plan: 07/08 day 2 nitrofurantoin for entercoccus that is sensitive, so complete 5 day course. DS: Summary Hospital Course Reason for hospitalization: Vertigo syncope Hospital Course: Admitted for episode vertigo nausea vomiting and syncope. Found to be in atrial fibrillation with rapid ventricular rate. CTA brain carotids negative. Diltiazem drip initiated and patient cardioverted to normal sinus rhythm. Echocardiogram revealed mild left ventricular hypertrophy mild diastolic dysfunction and mild mitral insufficiency. Cardiology was consulted and sotalol was begun at 40 mg every 12 hours. Patient had some initial nausea metallic taste and bloating. This resolved. Urine culture did grow Enterococcus sensitive to ampicillin and nitrofurantoin. Nitrofurantoin was begun empirically continued at discharge for a 5 day course. By day of discharge she was asymptomatic and up and about independently ambulating and performing ADLs. Lexiscan stress was negative prior to discharge Status at Discharge Functional status at discharge: independent ambulation Overall status at discharge: patient is back to baseline Time Spent with Patient Time attestation: Total time spent providing and/or coordinating discharge services:38 min Time spent: Greater than 30 minutes Exam Narrative: Exam Narrative: HEENT: EOMI, PERRL, pharyngeal mucosa pink and intact NECK: No JVD CHEST: Clear to auscultation. Normal effort. HEART: NL S1/S2, regular, no murmur ABDOMEN: BS+, soft, nontender, no mass, no bruits EXTREMITIES: No cyanosis, edema, or clubbing NEUROLOGIC: CN intact and symmetric to inspection. MUSCULOSKELETAL: Tone and strength symmetric. PSYCH: Alert. Oriented to person, place, and time. Discharge Plan Discharge Attending physician on discharge: Oscar Ly Consulting providers: Anshu Rogers Discharging Clinician: Oscar Ly Patient Disposition: Home, Self-Care Activity: as tolerated Diet: low sodium Patient Instructions: Antibiotic Form, Sotalol (By mouth), Rivaroxaban (By mouth), A-fib (Atrial Fibrillation) (DC) Stand Alone Forms: General Discharge Information Follow-up/Referrals: Anshu Rogers MD [Physician] - 1 Week Pete Rios DO [Primary Care Provider] - 1 Week Discharge Medications: New Xarelto 20 mg Tablet 20 mg PO DAILY@1700 Qty: 30 RF: 0 hydrochlorothiazide 12.5 mg Capsule 12.5 mg PO DAILY Q
--- NOTE | 2019-07-08 10:34 | PM.PNCARD ---
Progress Note: A&P Assessment and Plan (1) Atrial fibrillation: Qualifiers: Atrial fibrillation type: paroxysmal Qualified Code(s): I48.0 - Paroxysmal atrial fibrillation Code(s): I48.91 - Unspecified atrial fibrillation Status: Acute Assessment and Plan: Remaining in sinus rhythm. Continue sotalol 80 mg q.12 hours. Anticoagulated with Xarelto. Check EKG again today. QTc acceptable on EKG for stress test. Stress test pending (2) Hypertension: Qualifiers: Hypertension type: essential hypertension Qualified Code(s): I10 - Essential (primary) hypertension Code(s): I10 - Essential (primary) hypertension Status: Acute Assessment and Plan: Reasonably controlled. Evaluate further as an outpatient. (3) Syncope: Qualifiers: Syncope type: unspecified Qualified Code(s): R55 - Syncope and collapse Code(s): R55 - Syncope and collapse Status: Acute Assessment and Plan: Unremarkable echo. No arrhythmias on telemetry. Lexiscan as above Additional Plan Further recommendations pending outcome of her stress test. Plan discussed with Dr. Rogers 1005 07/08/2019 Time Spent With Patient Time with patient: 15 - 25 minutes Subjective Date/time seen: 07/08/19 09:50 seen in stress lab Interval history: Follow-up for: atrial fibrillation, syncope Date of service: 07/08/2019 Subjective: Denied chest discomfort, shortness of breath, lightheadedness or palpitations. Aches and pains from her rheumatoid arthritis. Review of Systems Constitutional: Constitutional: Denies fatigue and Denies weakness Eyes: Eyes: Denies blurry vision ENT: Reports Normal hearing present and Reports vertigo Cardiovascular: Cardiovascular: Denies chest pain, Denies pedal edema, Denies leg edema, Denies lightheadedness and Denies palpitations Respiratory: Respiratory: Denies cough and Denies dyspnea Gastrointestinal: Gastrointestinal: Denies abdominal pain and Denies nausea Genitourinary: Genitourinary: Denies hematuria Musculoskeletal: Musculoskeletal: Reports arthralgias (Usual rheumatoid arthritis aches and pains) Integumentary/Breasts: Skin/Breast: Denies unusual bruising Neurologic: Denies Abnormal speech present, Denies abnormal gait and Denies vertigo Psychiatric: Psychiatric: Denies anxiety Endocrine: Endocrine: Reports palpitations Hematologic/Lymphatic: Hematologic/Lymphatic: Reports no additional hematologic/lymphatic complaints Allergic/Immunologic: Allergic/Immunologic: Reports no additional allergic/immunologic complaints Exam Const: General: comfortable and no acute distress HENMT: Mouth: Yes moist mucous membranes Eyes: Sclera: sclerae normal Pupils: Equal, round and reactive pupils present Neck: Neck: supple and no JVD Resp: Effort & Inspection: normal respiratory effort Auscultation: clear to auscultation bilaterally Cardio: Rate: regular rate Rhythm: regular rhythm Heart sounds: no murmurs GI: Auscultation: normal bowel sounds Skin: General skin exam: normal color Neuro: General: patient oriented x3 Cranial nerves: Yes Equal, round and reactive pupils present Extrem: General: normal to inspection Psych: Affect: normal affect Objective Data Vital Signs Vital Signs: Vital Signs - 24 hr 07/07/19 12:00 07/07/19 14:00 07/07/19 16:00 Temperature 36.2 C L Pulse Rate 70 72 60 Respiratory Rate 16 Blood Pressure 153/99 H Pulse Oximetry 100 07/07/19 18:00 07/07/19 20:00 07/07/19 21:33 Temperature 36.1 C L Pulse Rate 74 73 71 Respiratory Rate 18 Blood Pressure 151/96 H Pulse Oximetry 96 07/07/19 22:00 07/08/19 00:00 07/08/19 02:00 Temperature 36.6 C Pulse Rate 63 59 L 72 Respiratory Rate 16 Blood Pressure 130/74 Pulse Oximetry 97 07/08/19 03:30 07/08/19 04:00 07/08/19 0
[2019-07-08] MEDS: CHOLECALCIFEROL 1,000 UNIT TABLET 2000 UNITS PO (11:35)
[2019-07-08] MEDS: hydroCHLOROthiazide 12.5 MG CAPSULE PO (11:35)
[2019-07-08] MEDS: FOLIC ACID 0.4 MG TABLET PO (11:35)
[2019-07-08] MEDS: AMLODIPINE BESYLATE 5 MG TABLET 10 MG PO (11:35)
[2019-07-08] MEDS: SOTALOL HCL 40 MG TABLET PO (11:35)
[2019-07-08] MEDS: FAMOTIDINE 20 MG TABLET PO (11:35)
[2019-07-08] MEDS: CYANOCOBALAMIN 500 MCG TABLET PO (11:35)
[2019-07-08] MEDS: NITROFURANTOIN MONOHYD MACROCR 100 MG CAP PO (11:36)
[2019-07-08] MEDS: LEFLUNOMIDE 20 MG TABLET PO (11:36)
== END 2019-07-08 13:51 | disposition home or self-care (01) | DRG 312 ==
LOC: ANHED 13:57 → ANHIMU 14:11
PROVIDERS: Emergency Medicine Emergency Medical Services; Admitting Provider Family Medicine; Emergency Provider Emergency Medicine; PCP Internal Medicine; Visit Provider Internal Medicine
DX: R55 Syncope and collapse (principal); N39.0 Urinary tract infection, site not specified; I48.0 Paroxysmal atrial fibrillation; B95.2 Enterococcus as the cause of diseases classified elsewhere; H81.399 Other peripheral vertigo, unspecified ear; I10 Essential (primary) hypertension; M06.9 Rheumatoid arthritis, unspecified; M19.90 Unspecified osteoarthritis, unspecified site; K21.9 Gastro-esophageal reflux disease without esophagitis; J44.9 Chronic obstructive pulmonary disease, unspecified; L30.9 Dermatitis, unspecified; Z87.891 Personal history of nicotine dependence; Z90.710 Acquired absence of both cervix and uterus
CPT/HCPCS: 36415; 51701; 70496; 70498; 71046; 78452; 80053; 81001; 83605; 83880; 84484; 85025; 85610; 85730; 87077; 87086; 87088; 87186; 93005; 93017; 93306; 94762; 96365; 96366; 96375; 99285; A9270; A9502; G0378; J0280; J2785; J7120; Q9967

== ENCOUNTER → 2020-05-27 08:49 | Outpatient (CLI) | payer MEDICARE, SELFPAY ==
--- NOTE | ~2020-05-27 | XR_ITS ---
XR abdomen/kub 1V 05/27/2020 10:04 Indication: Gross hematuria Procedure: KUB Comparison: Barium enema dated 06/10/2004 Findings: There is an 8 mm calcification in the proximal right ureter at the L3 level. Bowel gas zhane meeta is nonobstructive. There are multiple pelvic phleboliths. Impression: 1: Proximal right ureteral stone at the L3 level measuring approximately 8 mm. Reviewed, dictated and finalized at location A. [facility] Impression: 1: Proximal right ureteral stone at the L3 level measuring approximately 8 mm.
--- NOTE | ~2020-05-27 | CT_ITS ---
EXAMINATION: CT abdomen pelvis wo/w con DATE: 05/27/2020 10:04 INDICATION: Gross hematuria TECHNIQUE: Computed tomography (CT) of the abdomen and pelvis was performed without and subsequently with 130 cc Omnipaque 350 intravenous contrast. Automated exposure control and iterative reconstructi on technique were employed. Exam dose: 1179.37 mGy-cm total exam DLP. COMPARISON: None. FINDINGS: Emphysematous changes are noted in the included lower lung zones. No pulmonary infiltrate o r consolidation. Normal heart size. No pericardial or pleural effusion. The liver, gallbladder, bile ducts, spleen, pancreas, pancreatic duct and adrenal glands are normal. There are numerous filling defects of the calyces of the right kidney, involving particularly the mid and lower portions of the right kidney, highly suggestive of transitional cell cancer. Less likely w ould be blood clots. 2.6 x 2.9 cm lateral mid right renal cyst. There are several 8 mm or smaller left renal cysts. There are 3 small areas of calcification in the hilar area of the kidney, possibly arterial calcifica tions versus small nonobstructing calculi. No left ureteral calculus or left hydroureteronephrosis. There is an approximately 6.5 x 10 mm obstructing calculus of the proximal right ureter at the lower L3 level. There is thickening of the wall of the proximal right ureter, of concern for another site of probable transitional cell cancer. Approximately 2.8 x 6 moderate lower pole nonobstructing right renal calculus. Consider urologic consult and retrograde pyelography. The urinary bladder is unremarkable. Status post hysterectomy. There is mild left colonic diverticulosis; no CT evidence of diverticulitis. No bowel obstruction, anuradha wel wall thickening, pneumatosis or intraperitoneal free air is detected. There is atherosclerotic change of the abdominal aorta and branches but no aneurysm. No intraperitoneal or retroperitoneal or pelvic mass lesion or adenopathy or ascites is noted otherwi se. There is severe degenerative disc disease and prominent posterior spurring at L4-5. No suspicious osteolytic or osteoblastic lesions are noted. IMPRESSION: Numerous filling defects of the right kidney calyces, suspicious for transitional cell c ancer Thickening of proximal right ureteral wall, suspicious for another site of transitional cell cancer Proximal right ureteral calculus Moderate right hydroureteronephrosis Possible small nonobstructing left renal calculi versus arterial calcifications Bilateral renal cysts Colonic diverticulosis Reviewed, dictated and finalized at [facility]. Reviewed, dictated and finalized at location B. [facility] IMPRESSION: Numerous filling defects of the right kidney calyces, suspicious f or transitional cell cancer Thickening of proximal right ureteral wall, suspicious for another site of gracia sitional cell cancer Proximal right ureteral calculus Moderate right hydroureteronephrosis Possible small nonobstructing left renal calculi versus arterial calcifications Bilateral renal cysts Colonic diverticulosis
[2020-05-27 10:16] LABS: Estimated Glomerular Filt Rate > 60
== END ==
PROVIDERS: Visit Provider Urology
DX: R31.0 Gross hematuria (principal); N20.1 Calculus of ureter; N13.30 Unspecified hydronephrosis; N28.1 Cyst of kidney, acquired; K57.90 Diverticulosis of intestine, part unspecified, without perforation or abscess without bleeding; R93.421 Abnormal radiologic findings on diagnostic imaging of right kidney
CPT/HCPCS: 36415; 74018; 74178; 82565; Q9967

== ENCOUNTER 2020-05-28 10:01 | Outpatient (CLI) | payer MEDICARE, SELFPAY ==
[2020-05-28 10:40] LABS: Anion Gap 9 mmol/L (8-16); Blood Urea Nitrogen 12 mg/dL (7-17); Calcium 9.7 mg/dL (8.4-10.2); Carbon Dioxide 30 mmol/L (22-30); Chloride 101 mmol/L (98-107); Estimated Glomerular Filt Rate > 60; Glucose 142 mg/dL (65-105); Potassium 3.1 mmol/L (3.4-5.0); Sodium 140 mmol/L (137-145)
== END 2020-05-28 10:02 | disposition home or self-care (01) ==
LOC: ANHSURGERY 10:04
PROVIDERS: Anesthesiology; PCP Internal Medicine; Visit Provider Urology
DX: Z01.818 Encounter for other preprocedural examination (principal); N20.1 Calculus of ureter; Z79.899 Other long term (current) drug therapy
CPT/HCPCS: 36415; 80048; 87086

== ENCOUNTER 2020-05-30 02:01 | Outpatient (CLI) | payer MEDICARE, SELFPAY ==
[2020-05-30 18:59] LABS: SARS-CoV-2 RNA PCR Negative
== END 2020-05-30 02:02 | disposition home or self-care (01) ==
LOC: ANHCOVIDDT 02:01
PROVIDERS: PCP Internal Medicine; Visit Provider Urology
DX: Z01.812 Encounter for preprocedural laboratory examination (principal); Z20.828 Contact with and (suspected) exposure to other viral communicable diseases
CPT/HCPCS: 87635; C9803; U0003

== ENCOUNTER 2020-06-02 02:00 | Day surgery (SDC) | payer MEDICARE, SELFPAY ==
[2020-05-28 08:48] VITALS: BMI 24.0
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
[2020-06-02] VITALS (7 sets, daily range): BP systolic 111–134; BP diastolic 76–83; PULSE 61–77; RESP 12–16; TEMP 36.5–36.9; O2SAT 92–100
--- NOTE | ~2020-06-02 | XR_ITS ---
EXAMINATION: XR retrograde pyelo w/stent RT EXAM DATE: 06/02/2020 15:24 INDICATION: RT RETRO/STENT . TECHNIQUE: Fluoroscopy used during XR retrograde pyelo w/stent RT performed by Dr. Ashu monroe MD. The DAP for this procedure was 416 radcm2 FINDINGS: Images demonstrate cannulation, injection of the right ureter. There is moderate right hyd ronephrosis. A right-sided double-J sent on some of the captured images. Correlate with procedure no te. IMPRESSION: Fluoroscopy used during XR retrograde pyelo w/stent RT. Reviewed, dictated and finalized at location B. [employer]
--- NOTE | 2020-06-02 11:53 | WPDHPUPDATE1 ---
History and Physical Update Update Date/Time: 06/02/20 11:53 History and Physical has been reviewed, including an updated exam of the patient. There are NO changes in the patient's condition. Risks, benefits, and alternatives have been discussed and questions answered. Patient agrees to proceed with procedure.
[2020-06-02] MEDS: LACTATED RINGERS 1,000 ML 30 ML IV CONT (12:20)
--- NOTE | 2020-06-02 13:02 | WPDHPUPDATE1 ---
History and Physical Update Update Date/Time: 06/02/20 13:02 History and Physical has been reviewed, including an updated exam of the patient. There are NO changes in the patient's condition. Risks, benefits, and alternatives have been discussed and questions answered. Patient agrees to proceed with procedure.
[2020-06-02] MEDS: ceFAZolin 2 GM/D5W 50 ML 2 GM/50 ML BAG IVPB (14:34)
--- NOTE | 2020-06-02 15:16 | SUR.OPER ---
right ureteral stent 4.8fr vl exp 2023-04-13, lot [id number]
[2020-06-02] MEDS: LIDOCAINE HCL 2% GEL UROJET 10 ML PKG MUCOUS MEM (15:24)
--- NOTE | 2020-06-02 15:29 | P.OP_ITS ---
Procedure Note - Detailed Date of procedure: 06/02/20 Pre-op diagnosis: Right Ureteral Calculus, Hematuria Post-op diagnosis: same Procedure performed: Cystoscopy, right retrograde pyelogram, right ureteroscopy with holmium laser of stone, stone extraction, right ureteral stent placement 4. 8 Monegasque contour Description of procedure: Patient is taken the operative suite and correctly identified. Once anesthesia was obtained she was placed in dorsal lithotomy position and prepped and draped in usual sterile fashion. Twenty-two Monegasque scope was inserted in the bladder. The right ureteral orifice was cannulated with a guidewire. Ureteral access sheath was placed. Mini flexible ureteral scope was inserted. There was a stone lodged in the proximal ureter. Using a laser fiber we fragmented this into extremely small fragments. Some dissipated in some of reflux back into the kidney. They are so small there was nothing really to retrieve this time. Inspection of the kidney at this time revealed no evidence of clots or filling defects. No tumors were noted. Pyelogram was confirmed to confirm placement of the stent. 4.8 Monegasque contour stent was then placed with the proximal end coiled in the renal pelvis and the distal end in the bladder. Bladder was drained. 2% viscous lidocaine was inserted urethra. Patient is taken recovery room stable condition. There was quite a bit of irritation of the ureteral mucosa. Will plan on leaving the catheter in at least 2 weeks time. Will plan on a CT urogram probably in the near future to make sure that that also looks completely normal. Anesthesia: GLMA Surgeon: Ashu Berg MD Drains: Yes Packing: No Pathology: yes Complications: No immediate complications Condition: stable Disposition: PACU
== END 2020-06-02 17:32 | disposition home or self-care (01) ==
PROVIDERS: PCP Internal Medicine; Visit Provider Urology
PROC: (CPT 52352; principal; 2020-06-02 14:00)
PROC: (CPT 52354; 2020-06-02 14:00)
PROC: (CPT 52356; 2020-06-02 14:00)
DX: N13.2 Hydronephrosis with renal and ureteral calculous obstruction (principal); I48.91 Unspecified atrial fibrillation; I10 Essential (primary) hypertension; E78.5 Hyperlipidemia, unspecified; M06.9 Rheumatoid arthritis, unspecified; M35.00 Sjogren syndrome, unspecified; K21.9 Gastro-esophageal reflux disease without esophagitis; M19.90 Unspecified osteoarthritis, unspecified site; F32.9 Major depressive disorder, single episode, unspecified; Z79.01 Long term (current) use of anticoagulants; Z87.891 Personal history of nicotine dependence; F12.90 Cannabis use, unspecified, uncomplicated
CPT/HCPCS: 52356; 36415; 74420; 80048; 82365; 87086; 87635; 88300; C1758; C1769; C1894; C2617; C9803; J0690; J1100; J2405; J2704; J3010; J7120; Q9966; U0003

== ENCOUNTER 2020-09-03 13:39 | Outpatient (CLI) | payer MEDICARE, SELFPAY ==
--- NOTE | ~2020-09-03 | CT_ITS ---
EXAMINATION: CT abdomen pelvis wo/w con EXAM DATE: 09/03/2020 14:36 INDICATION: Gross hematuria. Hypertension. Abnormal prior CT. TECHNIQUE: Spiral CT of the abdomen and pelvis was performed without contrast. The patient was then injected with small bolus intravenous Omnipaque 350, followed by delay of approximately 10 minutes to allow collecting system to opacify. A post contrast scan abdomen and pelvis was performed during inj ection of remaining contrast. A total of 130 cc intravenous contrast was administered. The dose-annie th product (DLP) for this examination was 861.03 mGy-cm. The exposure was tailored according to liberty ent size (auto mA exposure control), and iterative reconstruction (ASIR) was used as additional dose reduction technique. Comparison is made to prior examination from 05/27/2020. FINDINGS: There is 6 mm stone in right inferior calyx. Additional punctate bilateral nephrolithiasis. There is mild right-sided hydronephrosis to the ureteropelvic junction, where there is circumferenti al proximal ureteral wall moderate thickening and some faint calcifications developing along the wall . Several small filling defects identified within the calyces, could be blood clot, debris given the improvement in size and number of these, but transitional cell cancer also possible. There is also mi ld thickening of the right ureteral wall distally. The bladder is unremarkable. The uterus is not id entified and has likely been surgically resected. The liver, spleen, adrenal glands and pancreas are unremarkable. Gallbladder is unremarkable. No bi liary obstruction. There is no retroperitoneal or pelvic lymphadenopathy. There is moderate scatte red arteriosclerotic disease. The appendix is normal. The stomach and small bowel are unremarkable. There is expected amount of c olonic stool. No free intraperitoneal gas. The heart is normal in size. There are no pericardial or pleural effusions. The lung bases are unremarkable. There are no osteoblastic or osteolytic les ions identified. IMPRESSION: 1. Long segment diffuse moderate thickening of right proximal ureter and mild thickening of it dista lly. Mild resultant hydronephrosis, with interval improvement. Could be transitional cell cancer, or inflammation related. 2. Several small calyceal filling defects, tumor blood clot or debris, with decrease in size and num giana. 3. Bilateral nephrolithiasis. Reviewed, dictated and finalized at location A. IMPRESSION: 1. Long segment diffuse moderate thickening of right proximal ureter and mild thickening of it distally. Mild resultant hydronephrosis, with interval improve ment. Could be transitional cell cancer, or inflammation related. 2. Several small calyceal filling defects, tumor blood clot or debris, with de crease in size and number. 3. Bilateral nephrolithiasis.
== END 2020-09-03 13:40 | disposition home or self-care (01) ==
PROVIDERS: PCP Internal Medicine; Visit Provider Urology
DX: N20.0 Calculus of kidney (principal); N13.30 Unspecified hydronephrosis; R31.0 Gross hematuria
CPT/HCPCS: 74178; Q9967

== ENCOUNTER 2020-10-20 12:53 | Outpatient (CLI) | payer MEDICARE, SELFPAY ==
--- NOTE | 2020-10-20 12:56 | ECG_ITS ---
Measurements Intervals [place] Rate: 54 P: 62 NH: 161 QRS: 50 QRSD: 86 T: 103 QT: 431 QTc: 410 Interpretive Statements SINUS BRADYCARDIA BORDERLINE R WAVE PROGRESSION, ANTERIOR LEADS BORDERLINE T WAVE ABNORMALITY- ANT/HIGH LAT LEADS BASELINE ARTIFACT- I, II, III, AVR, AVL, AVF, V2, V5-V6 BORDERLINE ECG Electronically Signed On 10-20-2020 17:48:35 CDT by Livan Jennings D.O.
[2020-10-20 13:27] LABS: Anion Gap 4 mmol/L (8-16); Blood Urea Nitrogen 13 mg/dL (7-17); Calcium 9.9 mg/dL (8.4-10.2); Carbon Dioxide 32 mmol/L (22-30); Chloride 104 mmol/L (98-107); Estimated Glomerular Filt Rate > 60; Glucose 145 mg/dL (65-105); Potassium 3.8 mmol/L (3.4-5.0); Sodium 140 mmol/L (137-145)
== END 2020-10-20 12:54 | disposition home or self-care (01) ==
LOC: ANHSURGERY 12:56
PROVIDERS: Anesthesiology; PCP Internal Medicine; Visit Provider Urology
DX: Z01.818 Encounter for other preprocedural examination (principal); I10 Essential (primary) hypertension; N20.1 Calculus of ureter
CPT/HCPCS: 36415; 80048; 87077; 87086; 87088; 87186; 93005

== ENCOUNTER → 2020-10-24 02:42 | Outpatient (CLI) | payer MEDICARE, SELFPAY ==
[2020-10-24 19:43] LABS: SARS-CoV-2 RNA PCR Negative
== END ==
PROVIDERS: PCP Internal Medicine; Visit Provider Urology
DX: Z01.812 Encounter for preprocedural laboratory examination (principal); Z20.822 Contact with and (suspected) exposure to COVID-19
CPT/HCPCS: C9803; U0003; U0005

== ENCOUNTER 2020-10-27 02:36 | Day surgery (SDC) | payer MEDICARE, SELFPAY ==
[2020-10-16 13:25] VITALS: BMI 24.3
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
[2020-10-27] VITALS (8 sets, daily range): BP systolic 102–157; BP diastolic 79–85; PULSE 67–84; RESP 12–18; TEMP 36.2–36.4; O2SAT 98–100
--- NOTE | ~2020-10-27 | XR_ITS ---
EXAMINATION: XR retrograde pyelogram RT EXAM DATE: 10/27/2020 14:01 INDICATION: TECHNIQUE: Fluoroscopy used during XR retrograde pyelogram RT performed by Dr. Ashu Berg MD, urologist. The radiologist Prosper Ellington M.D. dictating this report of the image(s) available wa s not present for the procedure. Total fluoroscopic time of 29 seconds. The DAP for this procedure was 318 mGym2. A total of 7 images sent to PACS from the exam. FINDINGS: Right ureter was cannulated, injected, is unremarkable. Correlate with procedure note. IMPRESSION: Fluoroscopy used during right retrograde pyelogram. Reviewed, dictated and finalized at location A.
[2020-10-27] MEDS: LACTATED RINGERS 1,000 ML 30 ML IV CONT ×2 (12:53→14:35)
--- NOTE | 2020-10-27 12:56 | WPDHPUPDATE1 ---
History and Physical Update Update Date/Time: 10/27/20 12:56 History and Physical has been reviewed, including an updated exam of the patient. There are NO changes in the patient's condition. Risks, benefits, and alternatives have been discussed and questions answered. Patient agrees to proceed with procedure.
[2020-10-27] MEDS: ceFAZolin 2 GM/D5W 50 ML 2 GM/50 ML BAG IVPB (13:25)
[2020-10-27] MEDS: LIDOCAINE HCL 2% GEL UROJET 10 ML PKG MUCOUS MEM (13:42)
--- NOTE | 2020-10-27 13:59 | PM.PROC ---
Procedure Note - Detailed Date of procedure: 10/27/20 Pre-op diagnosis: Right Ureteral stone, gross hematria Post-op diagnosis: same Procedure performed: Cystoscopy, right retrograde pyelogram, right ureteroscopy Description of procedure: Patient is taken the operative suite and correctly identified. Once anesthesia was obtained she was placed in dorsal lithotomy position and prepped in the usual sterile fashion. Twenty-two East [place]orese scope inserted the bladder. There is no tumors noted. Pyelogram was then performed. There were no discrete filling defects. Given her CT findings we decided proceed with a diagnostic ureteroscopy. A mini flexible ureteral scope was inserted in the distal ureter. The entire ureter was inspected. It was noted that she had a small little calcification about 2 mm adhered to the proximal ureter. Simple passage of the stone caused the stone to be come dislodged. It was too small to retrieve at this time. She did have some narrowing in the proximal ureter which allowed passage of the scope. Inspection of a kidney in all the calices revealed no evidence of tumors irregularities at this time. Given the minimal manipulation we did not leave a stent in. 2% viscous lidocaine was inserted urethra patient is taken recovery room stable condition. Anesthesia: GLMA Surgeon: Ashu Berg MD Drains: No Packing: No Pathology: none sent Complications: No immediate complications Condition: stable Disposition: PACU
== END 2020-10-27 15:54 | disposition home or self-care (01) ==
PROVIDERS: PCP Internal Medicine; Visit Provider Urology
PROC: (CPT 52352; principal; 2020-10-27 13:00)
DX: N20.1 Calculus of ureter (principal); Z79.01 Long term (current) use of anticoagulants; I48.91 Unspecified atrial fibrillation; L21.9 Seborrheic dermatitis, unspecified; I10 Essential (primary) hypertension; E78.5 Hyperlipidemia, unspecified; M06.9 Rheumatoid arthritis, unspecified; M35.00 Sjogren syndrome, unspecified; F32.9 Major depressive disorder, single episode, unspecified; L30.9 Dermatitis, unspecified; Z87.891 Personal history of nicotine dependence; F12.90 Cannabis use, unspecified, uncomplicated
CPT/HCPCS: 52005; 36415; 74420; 80048; 87077; 87086; 87088; 87186; 93005; A9270; C1758; C1769; C9803; J0690; J1100; J2250; J2405; J2704; J3010; J7120; Q9966; U0003; U0005

== ENCOUNTER 2020-10-31 09:48 | Inpatient (IN) | payer MEDICARE, SELFPAY ==
[2020-10-31] VITALS (8 sets, daily range): BP systolic 114–142; BP diastolic 71–96; PULSE 74–97; RESP 14–24; TEMP 36.4–37.7; O2SAT 90–99; BMI 23.6
--- NOTE | ~2020-10-31 | CT_ITS ---
EXAMINATION: CT abdomen pelvis wo con DATE: 10/31/2020 11:10 INDICATION: Renal stone removed 3 days prior presenting with bilateral back pain TECHNIQUE: Computed tomography (CT) of the abdomen and pelvis was performed without intravenous contr ast. Automated exposure control and iterative reconstruction technique were employed. The dose-length product was 168.33 mGy-cm. COMPARISON: 09/03/2020 FINDINGS: Mild emphysema at the lung bases. Visualized inferior heart is normal. No pericardial or pleural effu wally. Liver, gallbladder, spleen, pancreas and bilateral adrenal glands are normal. There are couple 1 mm nonobstructing stones at the lower pole of the left kidney. There is a cluster of at least four, 1-2 mm stone fragments in the lower pole calyx of the right kidney and additional 1 mm stone at the right renal pelvis. There are couple low-attenuation right renal cysts, the larger measuring 3.1 cm. There is a high attenuation likely subcapsular perinephric hematoma surrounding the right kidney whic h a maximal thickness of 3.0 cm. Additional small amount of lower attenuation stranding in the right perirenal space extending inferiorly along the anterior margin of the right psoas muscle. No stones s een along the course of the ureters. Decompressed bladder is unremarkable. The uterus is not identifi ed and has likely been surgically resected. Multiple phleboliths in the pelvis. Bowels including the appendix are normal. No free intraperitoneal gas or fluid. No pathologically enlarged abdominal or pe lvic lymphadenopathy. Severe lower lumbar spondylosis. IMPRESSION: 1. Likely subcapsular right perinephric hematoma 2. A few 1-2 mm nonobstructing bilateral renal stones. 3. Mild emphysema at the lung bases. Reviewed, dictated and finalized at location A.
--- NOTE | ~2020-10-31 | CT_ITS ---
EXAMINATION: CT abdomen pelvis wo/w con DATE: 11/02/2020 14:15 INDICATION: Right renal hematoma TECHNIQUE: Computed tomography (CT) of the abdomen and pelvis was performed without and with 100 mL O mnipaque-350 intravenous contrast. Automated exposure control and iterative reconstruction technique were employed. The dose-length product was 536.07 mGy-cm. COMPARISON: 10/31/2020 FINDINGS: Mild emphysema at the lung bases. Heart size is normal. No pericardial or pleural effusion. Liver, ga llbladder, spleen, pancreas and bilateral adrenal glands are normal. There are bilateral low-attenuat ion nonenhancing renal cysts, the largest on the right measuring 3.1 cm. No significant interval kern ge in an intermediate attenuation nonenhancing right perinephric hematoma. No evident active contrast extravasation. This continues to exert some mass effect upon the right kidney. There is asymmetric m ildly decreased contrast enhancement of the right kidney relative to the left. Mildly delayed right n ephrogram relative to the left. Again seen is a cluster of a few 2 mm or smaller stone fragments at t he lower pole calyx of the right kidney. A few 1 mm nonobstructing stones in the left kidney. No hydr onephrosis. Bowels Including the appendix are normal. Decompressed bladder is unremarkable. The uteru s is not identified and has likely been surgically resected. No free intraperitoneal gas or fluid. No pathologically enlarged abdominal or pelvic lymphadenopathy. Severe lower lumbar spondylosis. IMPRESSION: 1. No interval change in likely subcapsular right perinephric hematoma which exerts mass effect on th e right kidney resulting in a mildly delayed right nephrogram. 2. No significant change in a few 1-2 mm nonobstructing bilateral renal stones. Reviewed, dictated and finalized at location A. IMPRESSION: 1. No interval change in likely subcapsular right perinephric hematoma which ex erts mass effect on the right kidney resulting in a mildly delayed right nephro gram. 2. No significant change in a few 1-2 mm nonobstructing bilateral renal stones.
--- NOTE | ~2020-10-31 | XR_ITS ---
EXAMINATION: XR chest 1V portable DATE: 10/31/2020 12:32 INDICATION: Shortness of breath TECHNIQUE: frontal view of the chest was obtained. COMPARISON: Chest radiograph dated 07/05/[address] dated 10/31/2020 and 07/05/2019 FINDINGS: The lungs remain clear with no focal airspace opacities, pulmonary edema, pleural effusion or pneumot horax. Increased lucency and architectural distortion in the upper lung zones consistent with emphyse ma better appreciated on prior CT studies. The cardiomediastinal silhouette is normal. IMPRESSION: 1. Emphysema. No acute cardiopulmonary disease. Reviewed, dictated and finalized at location A.
--- NOTE | 2020-10-31 10:15 | PC.NURSE ---
Ambulatory steady gait to BR, s/p R side kidney stone removal on Tues (NO stent), has been having sciatic-like pain on R side side then. C/o dysuria at the last drop , +hematuria. +chills
[2020-10-31 10:31] LABS: Basophils Absolute Auto 0.1 K/mm3 (0.0-0.1); Basophils Percent Auto 0.7 % (0.2-1.2); Eosinophils Absolute Auto 0.1 K/mm3 (0-0.3); Eosinophils Percent Auto 0.4 % (0-4.4); Hematocrit 29.7 % (37.0-47.0); Hemoglobin 9.7 g/dL (12.0-15.0); Immature Granulocyte Absolute 0.16 K/mm3 (0.00-0.031); Immature Granulocyte Percent A 0.9 % (0-0.5); Lymphocytes Absolute Auto 3.02 K/mm3 (0.9-3.2); Lymphocytes Percent Auto 16.9 % (18.3-44.2); Mean Corpuscular HGB Conc 32.7 g/dl (32-36); Mean Corpuscular Hemoglobin 29.4 pg (26-34); Mean Platelet Volume 10.8 fl (7.4-10.4); Monocytes Percent Auto 10.9 % (2.6-8.5); Neutrophils Absolute Auto 12.5 K/mm3 (1.3-6.7); Neutrophils Percent Auto 70.2 % (45.5-73.1); Platelet Count Result 284 k/mm3 (150-375); Red Cell Distribution Width 13.2 % (11.5-14.5); White Blood Count 17.9 K/mm3 (4.5-10.0)
[2020-10-31 10:41] LABS: Alanine Aminotransferase 15 U/L (4-35); Albumin Level 4.1 g/dL (3.5-5.1); Alkaline Phosphatase 127 U/L (38-126); Anion Gap 9 mmol/L (8-16); Aspartate Amino Transferase 28 U/L (14-36); Bilirubin,Total 2.8 mg/dL (0.2-1.3); Blood Urea Nitrogen 19 mg/dL (7-17); Calcium 9.3 mg/dL (8.4-10.2); Carbon Dioxide 24 mmol/L (22-30); Chloride 102 mmol/L (98-107); Estimated CRCL calculation 39 ml/min; Estimated Glomerular Filt Rate 50; Glucose 173 mg/dL (65-105); Potassium 3.5 mmol/L (3.4-5.0); Sodium 135 mmol/L (137-145)
[2020-10-31] MEDS: SODIUM CHLORIDE 0.9% IV 1,000 ML 999 ML IV CONT (10:49)
[2020-10-31 11:02] LABS: Add Urine Microscopic? YES; Appearance Urine Cloudy (Clear); Bilirubin Urine Negative (Negative); Blood Urine 3+ (Negative); Glucose Urine UA 1+ mg/dL (Negative); Ketones Urine Negative (Negative); Leukocyte Esterase Ur Negative LEU/UL (Negative); Nitrate Urine Positive (Negative); Protein Urine 3+ mg/dL (Negative); RBC Urine >75 /hpf (0-2); Specific Grav Ur 1.023 (1.001-1.035); Squamous Epithelial Cell Urine Moderate /hpf (Few); WBC Urine >75 /hpf
[2020-10-31 11:09] LABS: Color Urine Brown (Yellow)
[2020-10-31 11:43] LABS: Lactic Acid Reflex 1.5 mmol/L (0.7-2.1)
[2020-10-31] MEDS: fentaNYL CITRATE INJ (*CRX) 100 MCG/2 ML VIAL 50 MCG IV PUSH (12:04)
[2020-10-31 12:08] LABS: Carboxyhemoglobin 2.2 % THb (0-2.0); Fractional Inspired Oxygen 21 %
[2020-10-31 12:21] LABS: Oxygen Saturation ABG 92.9 % (95.0-100.0); PO2 ABG 60.5 mmHg (80.0-100.0)
[2020-10-31 12:23] LABS: Alveolar/Arterial O2 Gradient 49.1 mmHg; Base Excess ABG 0.4 mEq/l (+/-2.0); HCO3 ABG 23.8 mEq/l (22.0-26.0); PCO2 ABG 33.5 mmHg (35.0-45.0); Total Hemoglobin 8.9 g/dL (12.0-18.0)
[2020-10-31 12:24] LABS: Device ROOM AIR; Methemoglobin ABG 0.6 %THb (0-1.5); Modified Allen's Test Pass; Oxygen Content ABG 11.1 %vol (16.0-22.0); Oxyhemoglobin 88.2 % THb (90.0-100.0); PO2 FiO2 Ratio Arterial Blood 2.88 %; Site Drawn RIGHT RADIAL
--- NOTE | 2020-10-31 13:19 | PC.NURSE ---
ED PA at bedside to update pt and daughter
[2020-10-31] MEDS: LACTATED RINGERS 1,000 ML 150 ML IV CONT (13:45)
[2020-10-31] MEDS: RIVAROXABAN 20 MG TABLET PO (13:46)
[2020-10-31] MEDS: fentaNYL CITRATE INJ (*CRX) 100 MCG/2 ML VIAL 25 MCG IV PUSH (13:46)
--- NOTE | 2020-10-31 14:14 | PC.NURSE ---
Hospitalist at bedside
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
--- NOTE | 2020-10-31 16:39 | PC.NURSE ---
Pt ambulatory steady gait to BR, updated on POC, awaiting bed placement. Pt states she is feeling better, reports minimal R groin/flank pain. Denies N/V
--- NOTE | 2020-10-31 17:20 | PC.NURSE ---
This patient, Barbara Pagan, was admitted to 3 [facility] Surg Room 307-01. Patient/family oriented to hospital policies and general routines including ID bracelet, bed and alarms, visiting hours, pain management, procedures, bathroom and other care routines, personal items, smoking policy, room service/diet, and visiting hours. Information on how to activate the Rapid Response Team has been discussed. Patient/Family are encouraged to report perceived risks to care and to ask questions if they do not understand what they are told or what they should do.
[2020-10-31 17:27] LABS: Hematocrit 28.2 % (37.0-47.0); Hemoglobin 8.9 g/dL (12.0-15.0)
[2020-10-31 18:07] LABS: Hemoglobin A1C 5.9 % (<5.7)
[2020-10-31] MEDS: DOCUSATE SODIUM 100 MG CAPSULE PO (20:16)
[2020-10-31] MEDS: FAMOTIDINE 20 MG/2 ML VIAL IV PUSH (20:17)
[2020-10-31] MEDS: SOTALOL HCL 80 MG TABLET PO (20:34)
[2020-10-31 21:57] LABS: Hematocrit 24.4 % (37.0-47.0)
[2020-11-01] VITALS (7 sets, daily range): BP systolic 100–118; BP diastolic 55–64; PULSE 73–85; RESP 16–18; TEMP 36.8–38.2; O2SAT 95–98
[2020-11-01 06:21] LABS: Basophils Absolute Auto 0.1 K/mm3 (0.0-0.1); Basophils Percent Auto 0.4 % (0.2-1.2); Eosinophils Absolute Auto 0.2 K/mm3 (0-0.3); Eosinophils Percent Auto 1.2 % (0-4.4); Hematocrit 23.8 % (37.0-47.0); Hemoglobin 7.7 g/dL (12.0-15.0); Immature Granulocyte Absolute 0.15 K/mm3 (0.00-0.031); Lymphocytes Percent Auto 23.1 % (18.3-44.2); Mean Corpuscular HGB Conc 32.4 g/dl (32-36); Mean Corpuscular Hemoglobin 28.9 pg (26-34); Mean Corpuscular Volume 89.5 fl (80-100); Monocytes Absolute Auto 1.7 K/mm3 (0.1-0.6); Monocytes Percent Auto 11.4 % (2.6-8.5); Neutrophils Absolute Auto 9.3 K/mm3 (1.3-6.7); Neutrophils Percent Auto 62.9 % (45.5-73.1); Nucleated Red Blood Cells Perc 0.3 % (0.0-0.2); Platelet Count Result 281 k/mm3 (150-375); Red Blood Count 2.66 M/mm3 (4.2-5.4); Red Cell Distribution Width 13.1 % (11.5-14.5); White Blood Count 14.7 K/mm3 (4.5-10.0)
[2020-11-01 06:47] LABS: Anion Gap 5 mmol/L (8-16); Blood Urea Nitrogen 13 mg/dL (7-17); Calcium 8.4 mg/dL (8.4-10.2); Carbon Dioxide 25 mmol/L (22-30); Chloride 104 mmol/L (98-107); Estimated CRCL calculation 46 ml/min; Estimated Glomerular Filt Rate 60; Glucose 135 mg/dL (65-105); Potassium 3.2 mmol/L (3.4-5.0); Sodium 134 mmol/L (137-145)
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
[2020-11-01] MEDS: SOTALOL HCL 80 MG TABLET PO ×2 (11:16→21:09)
[2020-11-01] MEDS: LEFLUNOMIDE 20 MG TABLET PO (11:16)
[2020-11-01] MEDS: TAMSULOSIN HCL 0.4 MG CAPSULE PO (11:17)
[2020-11-01] MEDS: CHOLECALCIFEROL 1,000 UNITS TABLET 2000 UNITS PO (11:17)
[2020-11-01] MEDS: amLODIPine BESYLATE 5 MG TABLET 10 MG PO (11:17)
[2020-11-01] MEDS: FOLIC ACID 0.4 MG TABLET PO (11:18)
[2020-11-01] MEDS: CYANOCOBALAMIN 500 MCG TABLET PO (11:18)
[2020-11-01] MEDS: FAMOTIDINE 20 MG/2 ML VIAL IV PUSH ×2 (11:18→21:09)
[2020-11-01 11:53] LABS: Hemoglobin 8.8 g/dL (12.0-15.0)
[2020-11-01] MEDS: DOCUSATE SODIUM 100 MG CAPSULE PO (16:31)
--- NOTE | 2020-11-01 17:36 | PM.IMPN ---
Progress Note: A&P Assessment and Plan (1) Pyelonephritis: Code(s): N12 - Tubulo-interstitial nephritis, not specified as acute or chronic Status: Acute (2) Renal stones: Code(s): N20.0 - Calculus of kidney Status: Acute (3) A-fib: Code(s): I48.91 - Unspecified atrial fibrillation Status: Acute (4) Depression: Code(s): F32.9 - Major depressive disorder, single episode, unspecified Status: Acute (5) Hypertension: Qualifiers: Hypertension type: essential hypertension Qualified Code(s): I10 - Essential (primary) hypertension Code(s): I10 - Essential (primary) hypertension Status: Chronic (6) Hyperlipidemia: Code(s): E78.5 - Hyperlipidemia, unspecified Status: Acute (7) Rheumatoid arthritis: Code(s): M06.9 - Rheumatoid arthritis, unspecified Status: Chronic Additional Plan 10/31/20 Patient had a urine culture results on 10/20/2020 was Enterococcus species. Patient also had Enterococcus species on 07/05/2019. The patient had been on Macrobid for the last week. The patient has been having right flank pain since her procedure on the . On the she had a follow-up visit with her urologist. The patient was empirically started on ceftriaxone. Initially I had changed her to vancomycin but there may be a possibility that this could be vre. However the patient was treated with Macrobid according to that urine culture on the of this month. We are now initiating Zosyn in the event that this could still be be Enterococcus species. However this broad-spectrum should cover multiple anti microbial. Please adjust according to urine and blood cultures. Continue with IV fluids and pain management.Patient has bilateral small renal stones. The patient was started on Flomax. Urology is seeing the patient. Patient has had chronic hematuria and now her hemoglobin is down to 9.7. Will continue to monitor CBC.The patient is on Xarelto. She is currently in sinus rhythm. The patient is on sotalol as well. May consider holding her Xarelto since she does have blood in her urine. Continue with home medications. We were still waiting for home med verification. it looks like she may be on Norvasc. Hold hydrochlorothiazide as her creatinine is 1.3. The patient told me she is on Humira x RA. Slightly elevated blood sugar. Will check her A1c. The patient has no history of being diabetic. 11/01/20 pt upset about being placed on bed alarm. I don't like to be restricted reassured her safety is important to us. type of stones produced unable to be verified to give pt information regarding her nephrolithiasis. cont abx pt febrile today w elevated WBCs HgA1c WNL pt is not diabetic. cont current care. follow urine cultures and sensitivities, dispo home in 1-2 days Subjective Date/time seen: 11/01/20 17:36 pt doing ok upset that she has been placed in bed w bed alarm. pt advised we are concerned for her safety. long discussion w patient regarding plan of care. anticipated LOS 2-3 days to ensure abx regimen correct prior to dc. pt would also like information about nephrolithiasis Exam Narrative: Exam Narrative: GEN: NAD, upset but cooperative HEENT: NCAT, MMM, EOMI Neck: no JVD Heart: S1S2 RRR Lungs: CTA B/l Abd: soft, NT, ND, bowel sounds normoactive Ext: moves all, no cyanosis, no clubbing, no edema Neuro: unsteady gait, no focal deficits, AAOx3 Psych: mood and affect congruent upset and mildly agitated Objective Data Vital Signs Vital Signs: Vital Signs - 24 hr 10/31/20 21:42 10/31/20 22:00 11/01/20 06:00 Temperature 99.4 F 100.7 F H Pulse Rate 74 78 Respiratory Rate 18 16 Blood Pressure 117/71 108/61 Pulse Oximetry 92 94 95 11/01/20 08:00 11/01/20 09:35 11/01/20 11:16 Temperature Pulse Rate 78 85 Respiratory Rate 16 Blood Pressure Pulse Oximetry 95 95 11/01/20 14:00 Temperature 98.8 F Pulse Rate 7
--- NOTE | 2020-11-01 20:09 | PHAR ---
Home medication seen in Pharmacy and returned to [employer] at window from 3medsurg unit. Humira 40mg/0.8ml pen
[2020-11-01] MEDS: traMADol HCL (*CRX) 50 MG TABLET PO (21:16)
[2020-11-02 05:55] LABS: Basophils Absolute Auto 0.1 K/mm3 (0.0-0.1); Basophils Percent Auto 0.5 % (0.2-1.2); Eosinophils Absolute Auto 0.2 K/mm3 (0-0.3); Eosinophils Percent Auto 1.7 % (0-4.4); Hematocrit 23.2 % (37.0-47.0); Hemoglobin 7.2 g/dL (12.0-15.0); Immature Granulocyte Absolute 0.19 K/mm3 (0.00-0.031); Immature Granulocyte Percent A 1.4 % (0-0.5); Lymphocytes Absolute Auto 3.99 K/mm3 (0.9-3.2); Lymphocytes Percent Auto 28.6 % (18.3-44.2); Mean Corpuscular Hemoglobin 28.9 pg (26-34); Mean Corpuscular Volume 93.2 fl (80-100); Mean Platelet Volume 10.8 fl (7.4-10.4); Monocytes Absolute Auto 1.7 K/mm3 (0.1-0.6); Neutrophils Absolute Auto 7.8 K/mm3 (1.3-6.7); Neutrophils Percent Auto 55.8 % (45.5-73.1); Nucleated Red Blood Cells Perc 0.1 % (0.0-0.2); Platelet Count Result 257 k/mm3 (150-375); Red Blood Count 2.49 M/mm3 (4.2-5.4); Red Cell Distribution Width 13.2 % (11.5-14.5)
[2020-11-02 06:00] VITALS: BP 116/73; PULSE 73; RESP 16; TEMP 36.4; O2SAT 98
[2020-11-02 06:11] LABS: Anion Gap 4 mmol/L (8-16); Blood Urea Nitrogen 10 mg/dL (7-17); Calcium 8.3 mg/dL (8.4-10.2); Carbon Dioxide 24 mmol/L (22-30); Chloride 105 mmol/L (98-107); Estimated CRCL calculation 50 ml/min; Estimated Glomerular Filt Rate > 60; Glucose 148 mg/dL (65-105); Magnesium 2.1 mg/dL (1.6-2.3); Sodium 133 mmol/L (137-145)
[2020-11-02] MEDS: FOLIC ACID 0.4 MG TABLET PO (08:09)
[2020-11-02] MEDS: TAMSULOSIN HCL 0.4 MG CAPSULE PO (08:09)
[2020-11-02] MEDS: SOTALOL HCL 80 MG TABLET PO ×2 (08:09→20:34)
[2020-11-02] MEDS: CYANOCOBALAMIN 500 MCG TABLET PO (08:09)
[2020-11-02] MEDS: amLODIPine BESYLATE 5 MG TABLET 10 MG PO (08:09)
[2020-11-02] MEDS: CHOLECALCIFEROL 1,000 UNITS TABLET 2000 UNITS PO (08:09)
[2020-11-02] MEDS: LEFLUNOMIDE 20 MG TABLET PO (08:09)
[2020-11-02] MEDS: FAMOTIDINE 20 MG/2 ML VIAL IV PUSH ×2 (08:10→20:34)
--- NOTE | 2020-11-02 13:14 | WPDUROPN2 ---
Progress Note: A&P Assessment and Plan (1) Traumatic perinephric hematoma of right kidney: Code(s): S37.091A - Other injury of right kidney, initial encounter Status: Acute Assessment and Plan: It is unclear as to how this developed as the patient didn't have an ESWL she had a Cystoscopy, right retrograde pyelogram, right ureteroscopy Her urine culture is negative and her pain continues to be severe in the right flank, we will order a CT with and without contrast to further evaluate hematoma and discuss results and plan with Dr. Corado. Subjective Subjective Date/Time Seen: 11/02/20 13:14 Patient is s/p Cystoscopy, right retrograde pyelogram, right ureteroscopy with Dr. Combs from 10/27/2020. She has had severe pain in the right flank since and gross hematuria. She was initially thought to have a UTI, when I saw her in the office on Monday and she was given oral antibiotics, however her urine culture was negative from that office visit as well as her culture from the hospital admission. She was found to have a perinephric hematoma on CT without contrast. No improvement on her pain unfortunately. Review of Systems Cardiovascular: Cardiovascular: Denies chest pain Respiratory: Respiratory: Reports no additional respiratory complaints Gastrointestinal: Gastrointestinal: Reports abdominal pain, Denies nausea and Denies vomiting Genitourinary: Genitourinary: Reports hematuria, Reports nocturia, Denies dysuria, Reports flank pain, Denies urinary incontinence and Reports urinary urgency Exam Resp: Effort & Inspection: normal respiratory effort Cardio: Rate: regular rate GI: GI Palp: Yes Soft to palpation, Yes Tenderness to palpation present (GI) and Yes Guarding due to palpation present (GI) : General: Yes CVA tenderness on the right Extrem: General: no edema Objective Data Vital Signs Vital Signs: Vital Signs - 24 hr 11/01/20 14:00 11/01/20 21:09 11/01/20 21:31 Temperature 98.8 F 98.3 F Pulse Rate 73 80 81 Respiratory Rate 16 18 Blood Pressure 100/55 L 118/64 Pulse Oximetry 98 97 11/02/20 06:00 Temperature 97.5 F L Pulse Rate 73 Respiratory Rate 16 Blood Pressure 116/73 Pulse Oximetry 98 Intake/Output Intake/Output: Intake & Output 05/21/21 05/22/21 05/23/21 05/24/21 23:59 23:59 23:59 23:59 Intake Total 1420 1230 480 Output Total 700 Balance 1420 530 480 Meds/Results Medications: Active Medications Generic Name Dose Route Start Last Admin Trade Name Freq PRN Reason Stop Dose Admin Amlodipine Besylate 10 mg 11/01/20 09:00 11/02/20 08:09 Amlodipine Besylate 5 Mg Tablet PO 10 mg DAILY SCAR Administration Cyanocobalamin 500 mcg 11/01/20 09:00 11/02/20 08:09 Cyanocobalamin 500 Mcg Tablet PO 500 mcg QAM SCAR Administration Docusate Sodium 100 mg 10/31/20 19:59 11/01/20 16:31 Docusate Sodium 100 Mg Capsule PO 100 mg Q12H PRN Administration Constipation Famotidine 20 mg 10/31/20 21:00 11/02/20 08:10 Famotidine 20 Mg/2 Ml Vial IV PUSH 20 mg Q12HR SCAR Administration Fentanyl Citrate 25 mcg 10/31/20 21:00 Fentanyl Citrate Inj (*Crx) 100 Mcg/2 Ml Vial IV PUSH Q4H PRN PAIN 7-10 Folic Acid 0.4 mg 11/01/20 09:00 11/02/20 08:09 Folic Acid 0.4 Mg Tablet PO 0.4 mg QAM SCAR Administration Piperacillin/Tazobactam/Dextrose 3.375 gm in 50 mls @ 100 mls/hr 10/31/20 18:00 11/02/20 12:58 Zosyn 3.375 Gm/D5w 50ml Pm IVPB 100 mls/hr Q6HR SCAR Administration Leflunomide 20 mg 11/01/20 09:00 11/02/20 08:09 Leflunomide 20 Mg Tablet PO 20 mg DAILY SCAR Administration Ondansetron HCl 4 mg 10/31/20 14:52 Ondansetron Inj 4 Mg/2 Ml Vial IV PUSH Q4H PRN Nausea Phenazopyridine HCl 200 mg 10/31/20 19:59 Phenazopyridine Hcl 100 Mg Tablet PO TID PRN Pain/Dysuria symptoms Polyethylene Glycol 17 gm 11/01/20 16:43 Polyethylene Glycol 3350 17 Gm Powd.Pack PO
--- NOTE | 2020-11-02 15:32 | PM.IMPN ---
Progress Note: A&P Assessment and Plan (1) Pyelonephritis: Code(s): N12 - Tubulo-interstitial nephritis, not specified as acute or chronic Status: Acute Assessment and Plan: Patient had a urine culture results on 10/20/2020 was Enterococcus species. Patient also had Enterococcus species on 07/05/2019. The patient had been on Macrobid for the last week. The patient has been having right flank pain since her procedure on the . On the she had a follow-up visit with her urologist. The patient was empirically started on ceftriaxone. Initially I had changed her to vancomycin but there may be a possibility that this could be vre. However the patient was treated with Macrobid according to that urine culture on the of this month. We are now initiating Zosyn in the event that this could still be be Enterococcus species. However this broad-spectrum should cover multiple anti microbial. Please adjust according to urine and blood cultures. Continue with IV fluids and pain management. urine culture no growth (2) Renal stones: Code(s): N20.0 - Calculus of kidney Status: Acute Assessment and Plan: Patient has bilateral small renal stones. The patient was started on Flomax. Urology is seeing the patient. Patient has had chronic hematuria and now her hemoglobin is down to 9.7. Will continue to monitor CBC. hb down to 7.2 . monitor and transfue if < 7 (3) A-fib: Code(s): I48.91 - Unspecified atrial fibrillation Status: Acute Assessment and Plan: The patient is on Xarelto. She is currently in sinus rhythm. The patient is on sotalol as well. May consider holding her Xarelto since she does have blood in her urine. (4) Depression: Code(s): F32.9 - Major depressive disorder, single episode, unspecified Status: Acute Assessment and Plan: Continue with home medications. We were still waiting for home med verification. (5) Hypertension: Qualifiers: Hypertension type: essential hypertension Qualified Code(s): I10 - Essential (primary) hypertension Code(s): I10 - Essential (primary) hypertension Status: Chronic Assessment and Plan: it looks like she may be on Norvasc. Hold hydrochlorothiazide as her creatinine is 1.3. (6) Hyperlipidemia: Code(s): E78.5 - Hyperlipidemia, unspecified Status: Acute Assessment and Plan: Continue with home medications. (7) Rheumatoid arthritis: Code(s): M06.9 - Rheumatoid arthritis, unspecified Status: Chronic Assessment and Plan: Continue with patient's home medication. The patient told me she is on Humira. Additional Plan 10/31/20 Patient had a urine culture results on 10/20/2020 was Enterococcus species. Patient also had Enterococcus species on 07/05/2019. The patient had been on Macrobid for the last week. The patient has been having right flank pain since her procedure on the . On the she had a follow-up visit with her urologist. The patient was empirically started on ceftriaxone. Initially I had changed her to vancomycin but there may be a possibility that this could be vre. However the patient was treated with Macrobid according to that urine culture on the of this month. We are now initiating Zosyn in the event that this could still be be Enterococcus species. However this broad-spectrum should cover multiple anti microbial. Please adjust according to urine and blood cultures. Continue with IV fluids and pain management.Patient has bilateral small renal stones. The patient was started on Flomax. Urology is seeing the patient. Patient has had chronic hematuria and now her hemoglobin is down to 9.7. Will continue to monitor CBC.The patient is on Xarelto. She is currently in sinus rhythm. The patient is on sotalol as well. May consider holding her Xarelto since she does have blood in her urine. Continue with home medications. We were s
[2020-11-02] MEDS: POTASSIUM CHLORIDE 20 MEQ TABLET 40 MEQ PO (17:35)
[2020-11-02] MEDS: traMADol HCL (*CRX) 50 MG TABLET PO (17:50)
[2020-11-02 20:34] VITALS: PULSE 80
[2020-11-02] MEDS: fentaNYL CITRATE INJ (*CRX) 100 MCG/2 ML VIAL 25 MCG IV PUSH (20:38)
[2020-11-02 21:43] VITALS: BP 121/76; PULSE 77; RESP 18; TEMP 36.9; O2SAT 93
[2020-11-03] VITALS (12 sets, daily range): BP systolic 104–128; BP diastolic 58–80; PULSE 66–85; RESP 16–18; TEMP 36.4–37.9; O2SAT 94–98
--- NOTE | 2020-11-03 05:24 | PC.NURSE ---
11/02 patient complained of pain to day nurse, she gave tramadol as ordered for pain. Upon 2099 med pass patient was sitting up in bed rocking back and forth and wincing, she stated sharp pains in her back, gave fentanyl as ordered and she slept calmly and soundly for the rest of the night, when awoken for her piggybacks she stated she was not in as much pain and fell back to sleep shortly after. She has not requested further pain management since initial dose. Will pass on to AM RN. -AEW RN
[2020-11-03 06:00] LABS: Basophils Absolute Auto 0.1 K/mm3 (0.0-0.1); Basophils Percent Auto 0.4 % (0.2-1.2); Eosinophils Absolute Auto 0.3 K/mm3 (0-0.3); Hematocrit 22.5 % (37.0-47.0); Hemoglobin 7.1 g/dL (12.0-15.0); Immature Granulocyte Absolute 0.18 K/mm3 (0.00-0.031); Immature Granulocyte Percent A 1.4 % (0-0.5); Lymphocytes Absolute Auto 3.42 K/mm3 (0.9-3.2); Lymphocytes Percent Auto 26.4 % (18.3-44.2); Mean Corpuscular HGB Conc 31.6 g/dl (32-36); Mean Corpuscular Volume 91.8 fl (80-100); Mean Platelet Volume 10.7 fl (7.4-10.4); Monocytes Absolute Auto 1.7 K/mm3 (0.1-0.6); Monocytes Percent Auto 12.9 % (2.6-8.5); Neutrophils Absolute Auto 7.4 K/mm3 (1.3-6.7); Neutrophils Percent Auto 56.9 % (45.5-73.1); Nucleated Red Blood Cells Perc 0.2 % (0.0-0.2); Platelet Count Result 269 k/mm3 (150-375); Red Blood Count 2.45 M/mm3 (4.2-5.4); Red Cell Distribution Width 13.8 % (11.5-14.5)
[2020-11-03 06:11] LABS: Anion Gap 8 mmol/L (8-16); Blood Urea Nitrogen 10 mg/dL (7-17); Calcium 8.4 mg/dL (8.4-10.2); Carbon Dioxide 22 mmol/L (22-30); Chloride 106 mmol/L (98-107); Estimated CRCL calculation 55 ml/min; Estimated Glomerular Filt Rate > 60; Glucose 141 mg/dL (65-105); Potassium 3.5 mmol/L (3.4-5.0); Sodium 136 mmol/L (137-145)
[2020-11-03] MEDS: CYANOCOBALAMIN 500 MCG TABLET PO (10:03)
[2020-11-03] MEDS: traMADol HCL (*CRX) 50 MG TABLET PO (10:04)
[2020-11-03] MEDS: FAMOTIDINE 20 MG/2 ML VIAL IV PUSH ×2 (10:04→21:14)
[2020-11-03] MEDS: FOLIC ACID 0.4 MG TABLET PO (10:04)
[2020-11-03] MEDS: TAMSULOSIN HCL 0.4 MG CAPSULE PO (10:04)
[2020-11-03] MEDS: CHOLECALCIFEROL 1,000 UNITS TABLET 2000 UNITS PO (10:04)
[2020-11-03] MEDS: amLODIPine BESYLATE 5 MG TABLET 10 MG PO (10:04)
[2020-11-03] MEDS: LEFLUNOMIDE 20 MG TABLET PO (10:05)
[2020-11-03] MEDS: SOTALOL HCL 80 MG TABLET PO ×2 (10:05→21:14)
--- NOTE | 2020-11-03 10:20 | WPDUROPN2 ---
Progress Note: A&P Assessment and Plan (1) Traumatic perinephric hematoma of right kidney: Code(s): S37.091A - Other injury of right kidney, initial encounter Status: Acute Additional Plan Etiology of bleeding is unclear at this time as she only underwent a ureteroscopy. None the less, she is feeling better today. Hemoglobin although low has been stable. Hospital is will recheck H&H prior to any discharge. She is instructed on limited activity this week. She is to follow up with our nurse practitioner in 2 weeks time at which point we can reorder some labs. Long-term plan is for repeat CT of her kidneys in about 3 months to see if the hematoma appears to be resolving. Subjective Subjective Date/Time Seen: 11/03/20 10:20 Principal diagnosis: Perinephric subcapsular hematoma Interval history: Barbara developed an unusual right subcapsular hematoma after a ureteroscopy. Patient is feeling better today. She is anxious to get home. Her hemoglobin was stable at 7.1. Hospitalist will be repeating her hemoglobin to make sure it is stable prior to any discharge. The etiology for her hematomas unclear at this time. From our standpoint if she is medically stable she will be discharged home with limited activity this week. Follow up in the office with our nurse practitioner in 2-3 weeks time and we can recheck her labs. Longer term plan will be to repeat a scan in 3 months time. Review of Systems Review of Systems: All systems reviewed & are unremarkable except as noted in HPI and below Exam Const: General: cooperative HENMT: Head: normocephalic Chest: Chest palpation & inspection: normal inspection of the chest Resp: Effort & Inspection: normal respiratory effort Cardio: Rate: regular rate GI: Inspection: normal to inspection and non-distended GI Palp: Yes Soft to palpation Objective Data Vital Signs Vital Signs: Vital Signs - 24 hr 11/02/20 20:34 11/02/20 21:43 11/03/20 05:46 Temperature 36.9 C 36.7 C Pulse Rate 80 77 75 Respiratory Rate 18 18 Blood Pressure 121/76 118/65 Pulse Oximetry 93 95 11/03/20 10:05 Temperature Pulse Rate 75 Respiratory Rate Blood Pressure Pulse Oximetry Intake/Output Intake/Output: Intake & Output 10/31/20 11/01/20 11/02/20 11/03/20 23:59 23:59 23:59 23:59 Intake Total 1420 1230 1610 850 Output Total 700 760 Balance 1420 530 850 850 Meds/Results Medications: Active Medications Generic Name Dose Route Start Last Admin Trade Name Freq PRN Reason Stop Dose Admin Amlodipine Besylate 10 mg 11/01/20 09:00 11/03/20 10:04 Amlodipine Besylate 5 Mg Tablet PO 10 mg DAILY SCAR Administration Cyanocobalamin 500 mcg 11/01/20 09:00 11/03/20 10:03 Cyanocobalamin 500 Mcg Tablet PO 500 mcg QAM SCAR Administration Docusate Sodium 100 mg 10/31/20 19:59 11/01/20 16:31 Docusate Sodium 100 Mg Capsule PO 100 mg Q12H PRN Administration Constipation Famotidine 20 mg 10/31/20 21:00 11/03/20 10:04 Famotidine 20 Mg/2 Ml Vial IV PUSH 20 mg Q12HR SCAR Administration Fentanyl Citrate 25 mcg 10/31/20 21:00 11/02/20 20:38 Fentanyl Citrate Inj (*Crx) 100 Mcg/2 Ml Vial IV PUSH 25 mcg Q4H PRN Administration PAIN 7-10 Folic Acid 0.4 mg 11/01/20 09:00 11/03/20 10:04 Folic Acid 0.4 Mg Tablet PO 0.4 mg QAM SCAR Administration Piperacillin/Tazobactam/Dextrose 3.375 gm in 50 mls @ 100 mls/hr 10/31/20 18:00 11/03/20 05:28 Zosyn 3.375 Gm/D5w 50ml Pm IVPB Infused Q6HR SCAR Infusion Leflunomide 20 mg 11/01/20 09:00 11/03/20 10:05 Leflunomide 20 Mg Tablet PO 20 mg DAILY SCAR Administration Ondansetron HCl 4 mg 10/31/20 14:52 Ondansetron Inj 4 Mg/2 Ml Vial IV PUSH Q4H PRN Nausea Phenazopyridine HCl 200 mg 10/31/20 19:59 Phenazopyridine Hcl 100 Mg Tablet PO TID PRN Pain/Dysuria symptoms Polyethylene Glycol 17 gm 11/01/20 16:43 Polyethylene Glycol 3350
[2020-11-03 11:56] LABS: Hematocrit 21.6 % (37.0-47.0)
[2020-11-03 12:39] LABS: Hemoglobin 6.9 g/dL (12.0-15.0)
--- NOTE | 2020-11-03 15:56 | PM.DS ---
DS: Admitting Diagnosis Admitting Diagnosis Admitting Diagnosis: Back/flank pain after cystoscopy DS: Discharge Diagnosis Discharge Diagnosis (1) Traumatic perinephric hematoma of right kidney: Code(s): S37.091A - Other injury of right kidney, initial encounter Status: Acute Assessment and Plan: The patient has been having right flank pain since her procedure on October 27. She presented on 10/[address] Abd/Pelvis was performed. This showed a right perinephric hematoma. Etiology of this is unclear. Hemoglobin did drop during her hospital course requiring 1 unit of PRBC. She continued to have hematuria (which was present prior to the cystoscopy) but this was clearing and currently a pink color. Repeat CT scan showing no significant change. Right flank pain also improved during her hospital course. She was educated about the how to continue to monitor her urine color and about other warning signs. (2) Pyelonephritis: Code(s): N12 - Tubulo-interstitial nephritis, not specified as acute or chronic Status: Acute Assessment and Plan: UA noted but UCx negative. BCx NGTD. She was on IV abx. Discussed with urology who recommended continued abx for another 7 days. Home with [facility]. (3) Acute blood loss anemia: Code(s): D62 - Acute posthemorrhagic anemia Status: Acute Assessment and Plan: Hemoglobin 9.7 on presentation. Hemoglobin has drifted down to 6.9. [place] related to the right perinephric hematoma and the continued hematuria. The hematuria is clearing and a repeat CT scan yesterday showing no change in the rob nephric hematoma. The hematuria may be clearing because patient is off her Xarelto. She is to receive 1 unit of packed red blood cells. Options discussed with patient about either continued hospitalization observation with serial hemoglobin levels or home after transfusion with self-monitoring and hemoglobin check next week. She opts for discharge later tonight. Home today if no issues with the transfusion. Discussed with primary care provider. (4) Renal stones: Code(s): N20.0 - Calculus of kidney Status: Acute Assessment and Plan: Patient has bilateral small renal stones and hematuria. She underwent cystoscopy and right ureteroscopy on 10/27. The patient was started on Flomax. Urology was seeing the patient here. As above. (5) A-fib: Code(s): I48.91 - Unspecified atrial fibrillation Status: Acute Assessment and Plan: The patient was on Xarelto and Sotalol. She is currently in sinus rhythm. EKG on 10/20/20 showing NSR. We continued her sotalol. We held her Xarelto since she has perinephric hematoma and blood in her urine. Will continue to hold Xarelto with plans to resume as outpatient if her HH remains stable and hematuria resolves. Discussed with PCP. (6) Hypertension: Qualifiers: Hypertension type: essential hypertension Qualified Code(s): I10 - Essential (primary) hypertension Code(s): I10 - Essential (primary) hypertension Status: Chronic Assessment and Plan: BP reviewed closely. She is on Norvasc and HCTZ. Hydrochlorothiazide held as her creatinine is 1.3. Norvasc continued. BP remained well controlled. (7) Depression: Code(s): F32.9 - Major depressive disorder, single episode, unspecified Status: Acute Assessment and Plan: Mood remained stable. (8) Rheumatoid arthritis: Code(s): M06.9 - Rheumatoid arthritis, unspecified Status: Chronic Assessment and Plan: Remained stable. We continued with patient's home medication. DS: Summary Hospital Course Reason for hospitalization: 65yo female with hematuria here for right flank pain after a cystoscopy and right ureteroscopy and found to have right perinephric hematoma. Please see H&P for details Hospital Course: Please see above for details of hospital
[2020-11-03] MEDS: SODIUM CHLORIDE 0.9% IV 250 ML 30 ML IV CONT (17:27)
[2020-11-03 17:52] LABS: Vancomycin Trough < 5.0 ug/mL (10.0-20.0)
[2020-11-03] MEDS: ACETAMINOPHEN 325 MG TABLET 650 MG PO (18:11)
== END 2020-11-03 21:50 | disposition home or self-care (01) | DRG 699 ==
LOC: ANHED 14:51 → ANH3MEDSUR 16:50
PROVIDERS: Emergency Medicine Emergency Medical Services; Hospitalist; Nurse Practitioner; Admitting Provider Internal Medicine; Emergency Provider Emergency Medicine; PCP Internal Medicine; Visit Provider Internal Medicine
DX: S37.091A Other injury of right kidney, initial encounter (principal); D62 Acute posthemorrhagic anemia; N12 Tubulo-interstitial nephritis, not specified as acute or chronic; N20.0 Calculus of kidney; Z98.890 Other specified postprocedural states; E86.0 Dehydration; I48.91 Unspecified atrial fibrillation; F32.9 Major depressive disorder, single episode, unspecified; I10 Essential (primary) hypertension; E78.5 Hyperlipidemia, unspecified; M06.9 Rheumatoid arthritis, unspecified; K21.9 Gastro-esophageal reflux disease without esophagitis; M35.00 Sjogren syndrome, unspecified; Z79.01 Long term (current) use of anticoagulants; Z86.010 Personal history of colon polyps; Z87.891 Personal history of nicotine dependence
CPT/HCPCS: 36415; 36430; 36600; 71045; 74176; 74178; 80048; 80053; 80202; 81001; 82375; 82805; 83036; 83050; 83605; 83735; 85014; 85018; 85025; 86850; 86900; 86901; 86923; 87040; 87086; 96361; 96365; 96366; 96367; 96375; 96376; 99285; A9270; G0378; J0131; J0696; J2543; J3010; J7030; J7050; J7120; P9016; Q9967

== ENCOUNTER 2021-11-18 15:46 | Outpatient (CLI) | payer MEDICARE, SELFPAY ==
--- NOTE | ~2021-11-18 | MM_ITS ---
EXAMINATION: MM screening reid BI w larissa HISTORY: Screening mammogram, family history of breast cancer in her mother. TECHNIQUE: Craniocaudal and mediolateral oblique 3-D tomosynthesis images were obtained and synthetic 2-D images were generated. CAD analysis was submitted and interpreted. COMPARISON: 10/08/2010, 08/24/2009 BREAST PARENCHYMAL COMPOSITION: The breasts are heterogeneously dense, which may obscure small masses . FINDINGS: There is no suspicious mass, calcification, or architectural distortion to suggest malignan cy in either breast. There has been no suspicious interval change. IMPRESSION: 1. No mammographic evidence of malignancy. 2. Recommend routine screening mammography in one year. BI-RADS Category 1: Negative Reviewed, dictated and finalized at location A.
== END 2021-11-18 15:47 | disposition home or self-care (01) ==
PROVIDERS: PCP Internal Medicine; Visit Provider Internal Medicine
DX: Z12.31 Encounter for screening mammogram for malignant neoplasm of breast (principal)
CPT/HCPCS: 77063; 77067

== ENCOUNTER 2024-01-05 11:42 | Outpatient (CLI) | payer MEDICARE, SELFPAY ==
--- NOTE | ~2024-01-05 | XR_ITS ---
EXAMINATION: XR chest 2V 01/05/2024 11:52 INDICATION: Cough for 2 weeks PROCEDURE: 2 view chest COMPARISON: Comparison to multiple prior studies sequentially, with oldest reviewed study dated 09/2016. FINDINGS: The lungs are clear. The cardiomediastinal silhouette is within normal limits. There are no pleural effusions. There is no pneumothorax suspected. IMPRESSION: 1: NO ACUTE CARDIOPULMONARY DISEASE. Reviewed, dictated and finalized at location B.
== END 2024-01-05 11:43 ==
LOC: MICIMG 11:45
PROVIDERS: PCP Internal Medicine; Visit Provider Internal Medicine
DX: R05.9 Cough, unspecified (principal)
CPT/HCPCS: 71046

== ENCOUNTER 2024-03-21 12:33 | Outpatient (CLI) | payer MEDICARE, SELFPAY ==
--- NOTE | ~2024-03-21 | XR_ITS ---
EXAMINATION: XR barium swallow modified DATE: 03/21/2024 13:47 INDICATION: Dysphagia, unspecified. TECHNIQUE: The patient was given barium-containing material of multiple consistencies to swallow by t catalina speech pathologist while I performed fluoroscopy. Fluoroscopy exposure time was 1.3 minutes. The n umber of fluoroscopy images saved to the PACS was 1. Dose-area product was 0.836 Gy-cm^2. FINDINGS: The oral stage, pharyngeal stage, and cervical/esophageal stage of the swallow are normal. IMPRESSION: 1. Normal modified barium swallow. 2. Please refer to the speech therapy report for recommendations. Reviewed, dictated and finalized at location A.
--- NOTE | 2024-03-21 14:37 | REHSTMBS ---
Assessment and note entered by Kenisha Shah, RECORDING STUDIO INTERN Modified Barium Swallow Evaluation Feeding Type Recommended Oral Food Consistency Minced and Moist, Level 5 Liquid Consistency Thin (0) ST Clinical Summary MODIFIED BARIUM SWALLOW STUDY The patient was seen for an outpatient Modified Barium Swallow study at the request of her physician. Patient reports that she has a history of diabetes and rheumatoid arthritis. She stated that she developed a bad cold about one month ago that resulted in significant congestion in her throat, that it is not post nasal drip or acid reflux but that the phlegm seems to be produced in her throat, causing her to cough. Patient reported that she started having difficulty swallowing, that dense foods such as roast beef are hard for her to swallow and clear from the mouth and throat, and that she has lost fifteen pounds. She reports that her swallowing has somewhat improved since the initial symptoms but that she still tends to eat soft solids such as mashed potatoes, applesauce, etc. The patient was viewed in the lateral position to the level of C5/C6. Patient was presented with thin liquid contrast medium per cup and per straw, pudding mixed with semi-solid contrast medium per spoon, and then both fruit cocktail pieces and monik cracker pieces coated with the semi-solid mixture. The following impairments were noted: Oral Stage: None. Pharyngeal Stage: None. Cricopharyngeal Stage: None. Results suggest that at this time, patient's swallowing skills are within normal limits. At the same time, secondary to patient's complaints and history of RA, which can lead to difficulty swallowing, patient should continue with softer diet, softer foods, and regular liquids. Patient was instructed to cut meat into small pieces, shred the meat, take small bites, chew thoroughly. She was also instructed to use gravies, soups, and mayonnaise, etc. to add moisture to dry foods. Today she was instructed in the use of hard, effortful swallows with chin tuck against resistance as exercise to be completed in between meals. Due to patient's complaints, weight loss, and history of RA, please order outpatient Speech Therapy at [facility] for further instruction of safe swallowing techniques, compensatory strategies to assist with improved swallowing, and swallowing strengthening exercises to assist with safe, more comfortable swallows. Thank you for this referral.
== END 2024-03-21 12:34 | disposition home or self-care (01) ==
LOC: ANHIMG 12:36
PROVIDERS: PCP Internal Medicine; Visit Provider Internal Medicine
DX: R13.10 Dysphagia, unspecified (principal)
CPT/HCPCS: 92611